=== PATIENT | male | born 1960 | race Caucasian/White ===

== ENCOUNTER 2020-06-24 08:34 | Outpatient (REF) | payer MEDICARE, SELFPAY | END 2020-06-24 08:35 | disposition home or self-care (01) | LOC: HO.WFDLDS 08:34 | PROVIDERS: Visit Provider Internal Medicine | DX: Z20.822 Contact with and (suspected) exposure to COVID-19 (principal) | CPT/HCPCS: 36415; C9803; U0003 ==

== ENCOUNTER 2021-03-13 10:44 | Outpatient (REF) | payer MEDICARE, SELFPAY ==
--- NOTE | ~2021-03-13 | XR_ITS ---
EXAMINATION: XR CHEST CLINICAL INFORMATION: Pulmonary nodule COMPARISON: CT on 07/04/2019 TECHNIQUE: 2 views of the chest were obtained. FINDINGS: No significant abnormality is noted involving the heart, lungs, mediastinum, bony thorax or soft tissues. XR/XR chest 2V IMPRESSION: Unremarkable examination. The nodule visualized on the prior chest CT is too small for visualization on chest x-ray.
[2021-03-13 12:49] LABS: Alanine Aminotransferase 37 U/L (0-40); Albumin Level 4.4 g/dL (3.5-5.0); Alkaline Phosphatase 79 U/L (39-117); Anion Gap 12 (12-20); Aspartate Amino Transferase 22 U/L (5-37); Bilirubin Total 0.7 mg/dL (0.0-1.0); Blood Urea Nitrogen 15 mg/dL (9-16); Calcium 9.7 mg/dL (8.4-10.2); Carbon Dioxide 28 mmol/L (22-29); Chloride 104 mmol/L (96-108); Cholesterol 242 mg/dL; Estimated Glomerular Filt Rate > 60; Glucose Random 102 mg/dL (60-115); HDL Cholesterol 61 mg/dL; LDL Cholesterol Calculated 165 mg/dl; Potassium 4.9 mmol/L (3.3-5.1); Sodium 139 mmol/L (135-145); Total Protein 7.1 g/dL (6.5-8.0); Triglycerides 84 mg/dL
[2021-03-13 13:11] LABS: TSH reflex Free T4 1.86 uIU/mL (0.32-4.0)
== END 2021-03-13 10:45 | disposition home or self-care (01) ==
LOC: HO.LAB 10:44
PROVIDERS: PCP Family Medicine; Visit Provider Family Medicine
DX: Z00.00 Encounter for general adult medical examination without abnormal findings (principal); R91.1 Solitary pulmonary nodule
CPT/HCPCS: 36415; 71046; 80053; 80061; 84443

== ENCOUNTER 2021-08-27 12:40 | Outpatient (REF) | payer MEDICARE, SELFPAY ==
[2021-08-27 14:22] LABS: MANUAL DIFF FLAG NO
[2021-08-27 14:34] LABS: Basophils Percent Auto 0.5 % (0-2); Eosinophils Absolute Auto 0.1 X10*3/uL (0.0-0.4); Eosinophils Percent Auto 1.3 % (0-4); Hematocrit 44.2 % (42.0-52.0); Hemoglobin 14.8 g/dl (14.0-18.0); Imm Gran Abs Auto 0.02 X10*3/uL (0.00-0.03); Imm Gran Pct Auto 0.4 % (0.0-0.4); Lymphocytes Absolute Auto 1.4 X10*3/uL (1.2-4.9); Lymphocytes Percent Auto 25.2 % (20-40); Mean Corpuscular HGB Conc 33.5 g/dl (31.0-36.0); Mean Corpuscular Hemoglobin 30.5 pg (27.0-33.0); Mean Corpuscular Volume 90.9 fL (80.0-98.0); Mean Platelet Volume 10.4 fL (9.4-12.4); Monocytes Absolute Auto 0.4 X10*3/uL (0.1-1.2); Neutrophils Absolute Auto 3.6 x10*3/uL (2.0-8.3); Neutrophils Percent Auto 64.6 % (45-73); Platelet Count 193 X10*3/uL (160-400); Red Blood Count 4.86 X10*6/uL (4.60-5.80); Red Cell Distribution Width 13.1 % (11.0-16.0); White Blood Count 5.5 X10*3/uL (4.8-10.8)
[2021-08-27 14:39] LABS: Appearance Urine CLEAR; Color Urine YELLOW; Glucose Urine UA NEG (NEG); Leukocyte Esterase Urine NEG (NEG); Nitrite Urine NEG (NEG); Urine Blood TRACE (NEG); Urine Ketones NEG (NEG); Urine Protein NEG (NEG-TRACE)
[2021-08-27 14:56] LABS: Alanine Aminotransferase 38 U/L (0-40); Albumin Level 4.2 g/dL (3.5-5.0); Alkaline Phosphatase 79 U/L (39-117); Anion Gap 14 (12-20); Aspartate Amino Transferase 24 U/L (5-37); Bilirubin Total 0.7 mg/dL (0.0-1.0); Blood Urea Nitrogen 13 mg/dL (9-16); Calcium 9.5 mg/dL (8.4-10.2); Carbon Dioxide 29 mmol/L (22-29); Chloride 102 mmol/L (96-108); Estimated Glomerular Filt Rate > 60; Glucose Random 90 mg/dL (60-115); Potassium 5.6 mmol/L (3.3-5.1); Sodium 139 mmol/L (135-145); Total Protein 6.9 g/dL (6.5-8.0)
[2021-08-27 15:08] LABS: Erythrocyte Sedimentation Rate 5 MM/HR (0-15)
[2021-08-27 15:16] LABS: Prostate Specific Antigen Scr 0.64 ng/mL (<0.05-4.0)
[2021-08-27 15:30] LABS: Squamous Epithelial Cell Urine TRACE /LPF; WBC Urine 0 /HPF (0-4)
[2021-08-28 12:52] LABS: Anti Nuclear Antibody Screen NEGATIVE (NEGATIVE)
[2021-08-28 18:21] LABS: CRP High Sensitivity 5.4 mg/L
== END 2021-08-27 12:41 | disposition home or self-care (01) ==
LOC: HO.WFDLDS 12:40
PROVIDERS: Visit Provider Family Medicine
DX: Z00.00 Encounter for general adult medical examination without abnormal findings (principal); Z12.5 Encounter for screening for malignant neoplasm of prostate; L29.9 Pruritus, unspecified; R21 Rash and other nonspecific skin eruption; I10 Essential (primary) hypertension
CPT/HCPCS: 36415; 80053; 81001; 81003; 84153; 85025; 85652; 86038; 86039; 86141

== ENCOUNTER 2021-11-24 12:37 | Outpatient (REF) | payer OTHER, SELFPAY ==
[2021-11-24 13:29] LABS: Anion Gap 11 (12-20); Blood Urea Nitrogen 13 mg/dL (9-16); Calcium 9.3 mg/dL (8.4-10.2); Carbon Dioxide 28 mmol/L (22-29); Chloride 102 mmol/L (96-108); Estimated Glomerular Filt Rate > 60; Glucose Random 86 mg/dL (60-115); Potassium 4.4 mmol/L (3.3-5.1); Sodium 137 mmol/L (135-145)
[2021-11-24 13:41] LABS: Appearance Urine CLEAR; Color Urine YELLOW; Glucose Urine UA NEG (NEG); Leukocyte Esterase Urine NEG (NEG); Nitrite Urine NEG (NEG); PH 5.5 (5.0-8.0); Urine Blood NEG (NEG); Urine Ketones NEG (NEG); Urine Protein NEG (NEG-TRACE)
== END 2021-11-24 12:38 | disposition home or self-care (01) ==
LOC: HO.LAB 12:37
PROVIDERS: PCP Family Medicine; Visit Provider Family Medicine
DX: Z00.00 Encounter for general adult medical examination without abnormal findings (principal); E87.5 Hyperkalemia
CPT/HCPCS: 36415; 80048; 81003

== ENCOUNTER 2021-12-10 09:51 | Outpatient (REF) | payer OTHER, SELFPAY ==
--- NOTE | ~2021-12-10 | XR_ITS ---
EXAMINATION: XR PELVIS CLINICAL INFORMATION: Hip pain. COMPARISON: 09/29/2017 TECHNIQUE: AP view of the pelvis. FINDINGS: There is no evidence of acute fracture or diastasis of the pelvis. There is collar spurring seen involving the acetabulum bilaterally. There is loss of concavity about the superior lateral femoral neck with bump having the appearance of impingement syndrome. There is subchondral cyst formation seen about the hip and superior acetabulum. Patient is status post previous pedicle screw and ananda fixation of L4 and S1 with disc spacers seen at the L4-L5 and L5-S1 levels. Suture line from previous surgery seen about the pelvis. XR/XR pelvis 1-2V IMPRESSION: Stable appearance of the pelvis compared to study of 09/29/2017 with findings consistent with impingement syndrome of the right hip.
== END 2021-12-10 09:52 | disposition home or self-care (01) ==
LOC: HO.HOSX 09:51
PROVIDERS: Visit Provider Orthopaedic Surgery
DX: M16.11 Unilateral primary osteoarthritis, right hip (principal); M76.60 Achilles tendinitis, unspecified leg
CPT/HCPCS: 72170; 99212

== ENCOUNTER 2022-01-15 12:46 | Outpatient (REF) | payer OTHER, SELFPAY ==
--- NOTE | ~2022-01-15 | XR_ITS ---
EXAMINATION: XR ABDOMEN KUB CLINICAL INDICATION: Pelvic and perineal pain. COMPARISON: None TECHNIQUE: AP view of the abdomen. FINDINGS: There is a nonobstructive bowel gas pattern. Mild gas and stool are seen within the colon distally to the rectum. Mild multilevel degenerative changes are seen in the thoracolumbar spine. Posterior fusion hardware is seen in the inferior lumbar spine without abnormality. XR/XR KUB IMPRESSION: Nonobstructive bowel gas pattern.
== END 2022-01-15 12:47 | disposition home or self-care (01) ==
LOC: HO.HMGCX 12:46
PROVIDERS: PCP Family Medicine; Visit Provider Nurse Practitioner Family
DX: R10.2 Pelvic and perineal pain (principal)
CPT/HCPCS: 74018

== ENCOUNTER 2022-02-24 11:21 | Outpatient (REF) | payer OTHER, SELFPAY ==
[2022-02-24 14:31] LABS: Anion Gap 14 (12-20); Blood Urea Nitrogen 15 mg/dL (9-16); Calcium 9.2 mg/dL (8.4-10.2); Carbon Dioxide 25 mmol/L (22-29); Chloride 101 mmol/L (96-108); Estimated Glomerular Filt Rate > 60; Glucose Random 95 mg/dL (60-115); Potassium 4.4 mmol/L (3.3-5.1); Sodium 136 mmol/L (135-145)
== END 2022-02-24 11:22 | disposition home or self-care (01) ==
LOC: HO.WFDLDS 11:21
PROVIDERS: Visit Provider Family Medicine
DX: Z00.00 Encounter for general adult medical examination without abnormal findings (principal); E87.5 Hyperkalemia
CPT/HCPCS: 36415; 80048

== ENCOUNTER 2022-09-20 11:46 | Outpatient (REF) | payer OTHER, SELFPAY ==
[2022-09-20 14:05] LABS: MANUAL DIFF FLAG NO
[2022-09-20 14:27] LABS: Basophils Absolute Auto 0.1 X10*3/uL (0.0-0.2); Basophils Percent Auto 0.8 % (0-2); Eosinophils Absolute Auto 0.1 X10*3/uL (0.0-0.4); Eosinophils Percent Auto 1.2 % (0-4); Hematocrit 45.3 % (42.0-52.0); Hemoglobin 15.5 g/dl (14.0-18.0); Imm Gran Abs Auto 0.02 X10*3/uL (0.00-0.03); Imm Gran Pct Auto 0.3 % (0.0-0.4); Lymphocytes Absolute Auto 1.4 X10*3/uL (1.2-4.9); Lymphocytes Percent Auto 18.6 % (20-40); Mean Corpuscular HGB Conc 34.2 g/dl (31.0-36.0); Mean Corpuscular Hemoglobin 30.7 pg (27.0-33.0); Mean Corpuscular Volume 89.7 fL (80.0-98.0); Mean Platelet Volume 10.6 fL (9.4-12.4); Monocytes Absolute Auto 0.5 X10*3/uL (0.1-1.2); Neutrophils Absolute Auto 5.3 x10*3/uL (2.0-8.3); Neutrophils Percent Auto 72.1 % (45-73); Platelet Count 201 X10*3/uL (160-400); Red Blood Count 5.05 X10*6/uL (4.60-5.80); Red Cell Distribution Width 13.6 % (11.0-16.0); White Blood Count 7.3 X10*3/uL (4.8-10.8)
[2022-09-20 14:35] LABS: Alanine Aminotransferase 33 U/L (0-40); Albumin Level 4.3 g/dL (3.5-5.0); Alkaline Phosphatase 78 U/L (39-117); Anion Gap 11 (12-20); Aspartate Amino Transferase 18 U/L (5-37); Bilirubin Total 0.6 mg/dL (0.0-1.0); Blood Urea Nitrogen 13 mg/dL (9-16); Calcium 9.1 mg/dL (8.4-10.2); Carbon Dioxide 28 mmol/L (22-29); Chloride 104 mmol/L (96-108); Estimated Glomerular Filt Rate > 60; Glucose Random 94 mg/dL (60-115); Potassium 4.4 mmol/L (3.3-5.1); Sodium 139 mmol/L (135-145); Total Protein 6.7 g/dL (6.5-8.0)
== END 2022-09-20 11:47 | disposition home or self-care (01) ==
LOC: HO.WFDLDS 11:46
PROVIDERS: Visit Provider Family Medicine
DX: Z00.00 Encounter for general adult medical examination without abnormal findings (principal); R10.9 Unspecified abdominal pain
CPT/HCPCS: 36415; 80053; 85025

== ENCOUNTER 2022-09-21 14:02 | Outpatient (REF) | payer OTHER, SELFPAY ==
[2022-09-21 14:30] LABS: Appearance Urine Clear; Color Urine Yellow; Glucose Urine UA Negative (Negative); Leukocyte Esterase Urine Negative (Negative); Nitrite Urine Negative (Negative); PH 5.5 (5.0-9.0); Specific Gravity - Urine 1.025 (1.005-1.025); Urine Blood Negative (Negative); Urine Ketones Negative (Negative); Urine Protein Negative (Neg-Trace)
[2022-09-22 12:59] LABS: Campylobacter Not Detected (Not Detect.); Cryptosporidium Not Detected (Not Detect.); Cyclospora cayetanensis Not Detected (Not Detect.); E. coli EAEC Not Detected (Not Detect.); E. coli EPEC Not Detected (Not Detect.); E. coli ETEC Not Detected (Not Detect.); E. coli STEC Not Detected (Not Detect.); Entamoeba histolytica Not Detected (Not Detect.); Plesiomonas shigelloides Not Detected (Not Detect.); Salmonella Not Detected (Not Detect.); Shigella sp./EIEC Not Detected (Not Detect.); Vibrio Not Detected (Not Detect.); Vibrio Cholerae Not Detected (Not Detect.); Yersinia enterocolitica Not Detected (Not Detect.)
[2022-09-22 13:00] LABS: Adenovirus F 40/41 Not Detected (Not Detect.); Astrovirus Not Detected (Not Detect.); Giardia lamblia Not Detected (Not Detect.); Norovirus GI/GII Not Detected (Not Detect.); Rotavirus A Not Detected (Not Detect.); Sapovirus Not Detected (Not Detect.)
== END 2022-09-21 14:03 | disposition home or self-care (01) ==
LOC: HO.LNP 14:02
PROVIDERS: Visit Provider Family Medicine
DX: R10.9 Unspecified abdominal pain (principal); R30.0 Dysuria
CPT/HCPCS: 81003; 87507

== ENCOUNTER → 2022-10-19 09:02 | Outpatient (BNVA) | payer OTHER, SELFPAY | PROVIDERS: PCP Physician Assistant; Visit Provider Physician Assistant | DX: K57.92 Diverticulitis of intestine, part unspecified, without perforation or abscess without bleeding (principal); R19.4 Change in bowel habit; Z78.9 Other specified health status | CPT/HCPCS: 99212 ==

== ENCOUNTER 2022-12-16 10:44 | Outpatient (REF) | payer OTHER, SELFPAY ==
--- NOTE | ~2022-12-16 | XR_ITS ---
EXAMINATION: XR HIP, RIGHT CLINICAL INFORMATION: Pain. COMPARISON: None available. TECHNIQUE: AP and frog-leg lateral views of the right hip are submitted, together with a frontal view of the pelvis. FINDINGS: There is mild bony demineralization. There is mild narrowing of the right acetabular joint space, and the left acetabular joint space is well-maintained. There is subchondral sclerosis of the right acetabular roof. The bilateral femoral heads appear smooth. No fracture or dislocation is seen. The sacroiliac joints are symmetric and well-maintained. The pubic symphysis is intact. There are pelvic phleboliths. Lumbosacral orthopedic hardware is noted. XR/XR hip RT w PEL1V IMPRESSION: There is mild osteoarthritic change of the right hip, and no significant degenerative change is seen of the left hip. No fracture or dislocation is noted.
--- NOTE | ~2022-12-16 | XR_ITS ---
EXAMINATION: XR ABDOMEN KUB CLINICAL INDICATION: Abdominal pain. COMPARISON: KUB dated 01/15/2022. TECHNIQUE: AP view of the abdomen. FINDINGS: The bowel gas pattern is normal with no evidence of ileus or obstruction. No unusual soft tissue calcifications are noted. The bones are unremarkable. Lower lumbar orthopedic hardware is noted. XR/XR KUB IMPRESSION: Unremarkable examination.
== END 2022-12-16 10:45 | disposition home or self-care (01) ==
LOC: HO.XRAY 10:44
PROVIDERS: PCP Family Medicine; Visit Provider Physical Medicine & Rehabilitation
DX: R10.9 Unspecified abdominal pain (principal); M25.551 Pain in right hip
CPT/HCPCS: 73502; 74018

== ENCOUNTER 2023-05-09 13:05 | Outpatient (AMB) | payer OTHER, SELFPAY ==
--- NOTE | 2023-05-09 13:08 | A.OFFPC_ITS ---
Vital Signs 05/09/23 13:13 Height 5 ft 10 in Weight 217 lb BMI 31.1 BP 130/80 Blood Pressure Location Lt brachial Position Sitting Respiration 14 Pulse 97 Pulse Source Pulse Oximeter Pulse Oximetry (%) 96 Oxygen Delivery Method Room Air Intake Visit Reasons: Fall bruised tail bone Intake Note: Patient fell backwards over the side of a garden bed and fell onto a 2x4 piece of wood, hitting his tailbone. Patient reports the pain has caused him to stay in bed all weekend and he is concerned for the area as he has had previous operations. Calibration Technician Required: No Accompanied by: Self / Same As Patient Allergies celecoxib [Celebrex] Adverse Reaction (Unknown, Verified 05/09/23 13:28) eyes swell Medication List - Last Reconciled 05/09/23 by Vern Pat CNP cetirizine 10 mg PO DAILY clotrimazole-betamethasone 1-0.05 % 1 appl topical BID 2 weeks cyclobenzaprine 10 mg PO TID PRN hydrochlorothiazide 12.5 mg PO DAILY 90 days ibuprofen 800 mg PO Q8H PRN methylcellulose (laxative) (Citrucel) 500 mg PO TID PRN mupirocin 2% 1 appl topical BID 30 days oxycodone ER (OxyContin) 0 mg PO polyethylene glycol 3350 (Miralax) 17 grams PO DAILY 14 days Tobacco use date assessed: 05/09/23 Dental Screening Dental Screen Date: 05/09/23 HPI HPI Comments History of Present Illness Details 62-year-old male presents with complaint s of pain to his tailbone. He notes that he fell backwards on the side of a garden bed and landed on her buttocks on a 2 x 4 piece of wood. He states the incident happened last Tuesday. He notes he was in significant amount of pain and stayed in bed throughout the weekend. No tingling, numbness, loss of sensation. He reports h/o L4-S1 work- related injury 16 years ago with spinal fusion. He is on Oxycodone for chronic pain management of the lower spine; provides minimal relief of his current symptoms. [facility] Family History Father No problems noted. Mother No problems noted. 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al exposures/hazards: No Cognitive needs: No Hearing needs: No Vision needs: Yes Questionnaire Thrive Questionnaire Date Thrive assessed: 11/24/21 PAYTON-7 AMB Questionnaire PAYTON-7 Date PAYTON - 7 assessed: 11/24/21 Source: Developed by Drs. Alexi Moreno, Amarilys White, Jesus Marcial and colleagues, with an educational padmini from [employer]. Review of Systems Const Details: Const Denies chills, Denies fatigue, Denies fever(s), Denies headache(s) and Denies weakness ENT Denies dizziness and Denies headache(s) Card Denies chest pain, Denies lightheadedness, Denies dyspnea and Denies other (Palpitations) Resp Denies cough, Denies dyspnea, Denies wheezing and Denies other ( shortness of breath) GI Denies abdominal pain, Denies melena, Denies hematochezia, Denies change in bowel habits, Denies dyspepsia and Denies nausea Denies hematuria and Denies dysuria Musc Reports as per HPI Skin/Breast Denies rash, Denies unusual bruising and Denies wounds Neuro Denies abnormal gait, Denies dizziness, Denies headache(s), Denies memory loss, Denies numbness, Denies Sensory deficit (Neuro), Denies tingling and Denies weakness Psych Denies anxiety, Denies depression, Denies memory loss Endo Denies cold intolerance, Denies fatigue, Denies heat intolerance, Denies polydipsia and Denies polyuria Aller/Immun Denies wheezing Physical exam (Primary Care) Vital Signs: Last Vital Signs Pulse 97 05/09/23 13:13 Resp 14 05/09/23 13:13 BP 130/80 05/09/23 13:13 Pulse Ox 96 05/09/23 13:13 Oxygen Delivery Method Room Air 05/09/23 13:13 BMI result Body Mass Index 31.1 Tobacco/Smoking Status: Tobacco use Status Tobacco use date assessed 05/09/23 05/09/23 13:21 Patient Tobacco Use Status Never used Tobacco 05/09/23 13:10 e-Cigarette/Vaping Use Never Used 05/09/23 13:10 Thrive Assessment: Date of Thrive Assessment Date Thrive assessed 11/24/21 05/09/23 13:10 Const Other: General: no acute distress and well developed Nutritional Appearance: well nourished Orientation/consciousness: patient oriented x3 HENMT Head: Yes normocephalic and Yes atraumatic Eyes General: appearance normal, both eyes and all related structures Pupils: Equal, round and reactive pupils present EOM: EOMs intact bilaterally Resp Effort & Inspection: normal respiratory effort Auscultation: clear to auscultation bilaterally Cardio Rate: regular rate Rhythm: regular rhythm Heart sounds: S1 normal heart sound present, S2 normal heart sound present, no gallops, no murmurs and no rubs GI Palpation (GI): No Abdominal aortic bruit present, Soft to palpation, nontender, No hepatosplenomegaly present and No Rebound tenderness present Auscultation: normal bowel sounds General: Yes no CVA tenderness Back/Spine/Pelvis Back: no CVA tenderness Cervical Spine: cervical ROM normal and No Cervical spine tenderness Thoracic/Lumbar Spine: thoraco-lumbar ROM normal, No pain with thoraco-lumbar ROM, No thoracic spinal tenderness and No lumbar spinal tenderness Significant bruising and mild edema noted to the buttocks proximal to the co ccyx, skin is intact, no overt fracture noted Extrem General: Yes normal to inspection, No edema and No calf tenderness Skin General: warm and dry. Normal skin color. Normal skin turgor Neuro General: patient oriented x3, gait normal and no focal neuro deficit Cranial nerves: Yes Equal, round and reactive pupils present Cognition (Neuro): normal cognition Gait exam (Neuro): Normal gait present Sensory Exam: No Sensory deficit (Neuro) Psych Appearance: grossly normal Affect: normal affect Attitude: cooperative Thought process: Normal thought process present Assessment and Plan Assessment & Plan (1) Coccyx pain: Code(s): M53.3 - Sacrococcygeal disorders, not elsewhere classified Plan: Reports constant pain to his coccyx from a fall 4 days ago. No tingling, numbness, or loss of sensation History of injury to L1-S1 with spinal fusion Physical exam is benign No neuro deficit. Low suspicion for cauda equina syndrome Significant bruising and mild edema noted to the buttocks proximal to the coccyx, skin is intact, no overt fracture noted Ibuprofen refilled. Take as prescribed Cold compresses encouraged X-ray ordered Return with worsening or new symptoms Verbalized understanding and agreed with treatment plan. Orders: Orders XR sacrum coccyx min 2V Today M53.3 - Sacrococcygeal disorders, not elsewhere classified Medications: Refilled ibuprofen 800 mg PO Q8H PRN 90 tabs 0RF for pain Coding Level of Care Code Est Pt Level 3 (31478) Diagnoses Coccyx pain M53.3
[2023-05-09 13:13] VITALS: BP 130/80; PULSE 97; RESP 14; O2SAT 96; BMI 31.1
== END 2023-05-09 13:45 | disposition home or self-care (01) ==
PROVIDERS: PCP Family Medicine; Visit Provider Nurse Practitioner Family
DX: M53.3 Sacrococcygeal disorders, not elsewhere classified (principal)
CPT/HCPCS: 99213

== ENCOUNTER 2023-05-09 14:05 | Outpatient (REF) | payer OTHER, SELFPAY ==
--- NOTE | ~2023-05-09 | XR_ITS ---
EXAMINATION: XR SACRUM AND COCCYX CLINICAL INFORMATION: Sacral coccygeal disorder. Pain COMPARISON: None available. TECHNIQUE: 2 views of the sacrum and 2 views of the coccyx were obtained. FINDINGS: The SI joints are symmetrical and unremarkable. There is no fracture, sclerotic or lytic lesion involving the sacrum or the iliac bone. There are bilateral L4 and S1 pedicular screws with interconnecting rods and disc prostheses at the L4-L5 and L5-S1 disc level. The soft tissues are normal. XR/XR sacrum coccyx min 2V IMPRESSION: 1. Unremarkable SI joints. 2. Bilateral L4 and S1 pedicular screws with interconnecting rods and disc prostheses at the L4-L5 and L5-S1 disc levels.
== END 2023-05-09 14:06 | disposition home or self-care (01) ==
LOC: HO.HMGCX 14:05
PROVIDERS: PCP Family Medicine; Visit Provider Nurse Practitioner Family
DX: M53.3 Sacrococcygeal disorders, not elsewhere classified (principal)
CPT/HCPCS: 72220

== ENCOUNTER 2023-07-15 14:01 | Outpatient (AMB) | payer OTHER, SELFPAY ==
--- NOTE | 2023-07-15 14:10 | A.OFFPC_ITS ---
Vital Signs 07/15/23 14:11 Height 5 ft 10 in Weight 220 lb 6 oz BMI 31.6 BP 132/76 Blood Pressure Location Lt brachial Position Sitting Pulse 77 Pulse Source Pulse Oximeter Pulse Oximetry (%) 97 Oxygen Delivery Method Room Air Intake Visit Reasons: CPE Intake Note: Patient is here for his phyical today. Patient would like refill of his Ibuprofen today. Allergies celecoxib [Celebrex] Adverse Reaction (Unknown, Verified 07/15/23 14:12) eyes swell Tobacco use date assessed: 07/15/23 [facility] Family History (Reviewed 07/15/23 @ 14:13 by Lorri Holley [facility]) Father No problems noted. Mother No problems noted. Social History (Reviewed 07/15/23 @ 14:13 by Lorri Holley [facility]) Housing: House Alcohol intake: current Alcohol intake frequency: a few times a month Patient Tobacco Use Status: Never used Tobacco e-Cigarette/Vaping Use: Never Used Second Hand Smoke Exposure: No service: No Current occupational status: disabled Current occupational exposures/hazards: No Cognitive needs: No Hearing needs: No Vision needs: Yes Questionnaire PHQ-9 Over the last 2 weeks, how often have you been bothered by any of the following problems? 1. Little interest or pleasure in doing things: not at all 2. Feeling down, depressed, or hopeless: not at all 3. Trouble falling or staying asleep, or sleeping too much: not at all 4. Feeling tired or having little energy: not at all 5. Poor appetite or overeating: not at all 6. Feeling bad about yourself - or that you are a failure or have let yourself or your family down: not at all 7. Trouble concentrating on things, such as reading the newspaper or watching television: not at all 8. Moving or speaking so slowly that other people could have noticed. Or the opposite - being so fidgety or restless that you have been moving around a lot more than usual: not at all 9. Thoughts that you would be better off or of hurting yourself in some way: not at all Total score: 0 Depression Screening Interpretation: Negative Depression Screening Done: Yes Source: Developed by Drs. Alexi Moreno, Amarilys White, Jesus Marcial and colleagues, with an educational padmiin from [employer]. Thrive Questionnaire Date Thrive assessed: 11/24/21 I am a: Patient What is your living situation today?: I have a steady place to live Within the past 12 months, did the food you bought not last and you didn't have the money to get more?: Never true Within the past 12 months, did you worry whether your food would run out before you got money to buy more?: Never true Do you have trouble paying for medicines?: No Do you have trouble getting transportation to medical appointments?: No Do you have trouble paying your heating and electricity bill?: No Do you have trouble taking care of your child, family member or friend?: No Do you have trouble with day-to-day activities such as bathing, preparing meals, shopping, managing finances, etc.?: No Are you currently unemployed and looking for a job?: No Are you interested in more education?: No THRIVE Score: 0 AUDIT C Alcohol Use Questionnaire (AUDIT-C) 1. How often do you have a drink containing alcohol?: Never 3. How often do you have six or more drinks on one occasion?: Never Total Score: 0 PAYTON-7 AMB Questionnaire PAYTON-7 Date PAYTON - 7 assessed: 07/15/23 Feeling nervous, anxious, or on edge: 0 = Not at all Not being able to stop or control worryin = Not at all Worrying too much about different things: 0 = Not at all Trouble relaxin = Not at all Being so restless that it is hard to sit still: 0 = Not at all Becoming easily annoyed or irritable: 0 = Not at all Feeling afraid as if something awful might happen: 0 = Not at all Total PAYTON-7 score (0-4 normal; 5-9 mild; 10-14 moderate; 15-21 severe): 0 Source: Developed by Drs. Alexi Moreno, Amarilys White, Jesus Marcial and colleagues, with an educational padmini from [employer]. Review of Systems Const Details: Review of Systems Const Denies?chills,?Denies?fatigue,?Denies?fever(s),?Denies?headache(s) and?Denies?weakness Eyes Denies?change in vision ENT Denies?dizziness,?Denies?headache(s),?Denies?hearing loss,?Denies?nasal congestion,?Denies?sinus pain,?Denies?sinus pressure and?Denies?sore throat Card Denies?chest pain,?Denies?lightheadedness,?Denies?dyspnea and?Denies?other (palpitations) Resp Denies?cough,?Denies?dyspnea and?Denies?wheezing GI Denies?abdominal pain,?Denies?melena,?Denies?hematochezia,?Denies?change in bowel habits,?Denies?dyspepsia and?Denies?nausea Denies?hematuria and?Denies?dysuria Musc Denies?abnormal gait,?Denies?myalgias,?Denies?arthralgias,?Denies?numbness and?Denies?tingling Skin/Breast Denies?rash,?Denies?unusual bruising and?Denies?wounds Neuro Denies?abnormal gait,?Denies?dizziness,?Denies?headache(s),?Denies?memory loss,?Denies?numbness,?Denies?Sensory deficit (Neuro),?Denies?tingling and?Denies?weakness Psych Denies?anxiety,?Denies?depression and?Denies?memory loss Endo Denies?cold intolerance,?Denies?fatigue,?Denies?heat intolerance,?Denies?polydipsia and?Denies?polyuria Ceferino/Lymph Denies?easy bleeding and?Denies?easy bruising Aller/Immun Denies?wheezing All systems reviewed & are unremarkable except as noted in HPI and below Physical exam (Primary Care) Vital Signs: Last Vital Signs Pulse 77 07/15/23 14:11 BP 132/76 07/15/23 14:11 Pulse Ox 97 07/15/23 14:11 Oxygen Delivery Method Room Air 07/15/23 14:11 BMI result Body Mass Index 31.6 Tobacco/Smoking Status: Tobacco use Status Tobacco use date assessed 07/15/23 07/15/23 14:13 Patient Tobacco Use Status Never used Tobacco 07/15/23 14:13 e-Cigarette/Vaping Use Never Used 07/15/23 14:13 PHQ-9: PHQ-9 Score PHQ-9: Total score 0 07/15/23 14:17 Depression Screening Interpretation: Negative Thrive Assessment: Date of Thrive Assessment Date Thrive assessed 11/24/21 07/15/23 14:13 Const Other: Physical Exam Const General:?no acute distress, well developed, alert and awake Nutritional Appearance:?well nourished Orientation/consciousness:?patient oriented x3 [facility] Head:?Yes?normocephalic and?Yes?atraumatic Ears:?hearing grossly normal bilaterally and TM's normal bilaterally General nose exam:?Normal external nose present and Normal nares present Mouth:?Normal oral and palatal mucosa present and moist mucous membranes Teeth and gingiva:?dentition normal Throat:?Yes?posterior oropharynx normal Eyes Pupils:?Equal, round and reactive pupils present and Pupil accommodation reflex normal EOM:?EOMs intact bilaterally Neck Neck:?Yes?normal visual inspection,?Yes?no lymphadenopathy and?Yes?trachea midline Thyroid:?Thyroid normal Carotids:?no bruits Lymphatic:?no lymphadenopathy noted Chest Chest palpation & inspection:?normal inspection of the chest Resp Effort & Inspection:?normal respiratory effort Auscultation:?clear to auscultation bilaterally Cardio Rate:?regular rate Rhythm:?regular rhythm Heart sounds:?S1 normal heart sound present, S2 normal heart sound present, no gallops, no murmurs and no rubs Bruits:?no abdominal aortic bruits and no carotid bruits GI Palpation (GI):?No?Abdominal aortic bruit present, Soft to palpation, nontender, No hepatosplenomegaly present and?No?Rebound tenderness present Auscultation:?normal bowel sounds General:?Yes?no CVA tenderness Back/Spine/Pelvis Back:?no CVA tenderness Cervical Spine:?cervical ROM normal and?No?Cervical spine tenderness Thoracic/Lumbar Spine:?thoraco-lumbar ROM normal,?No?pain with thoraco-lumbar ROM,?No?thoracic spinal tenderness and?No?lumbar spinal tenderness Skin Lesions:?no lesions Rashes:?no rashes Trauma:?no lacerations or abrasions Wounds:?no wounds Nails:?normal Neuro General:?patient oriented x3, gait normal and CN's II-XI intact bilaterally Cranial nerves:?Yes?Equal, round and reactive pupils present Cognition (Neuro):?normal cognition Gait exam (Neuro):?Normal gait present Motor exam (neuro):?5/5 motor strength present throughout Sensory Exam:?No?Sensory deficit (Neuro) Deep tendon reflexes (DTR's):?Right patellar reflex intensity grade:?2+ and?Left patellar reflex intensity grade:?2+ Extrem General:?Yes?normal to inspection and?No?edema Psych Appearance:?grossly normal Affect:?normal affect Attitude:?cooperative Thought process:?Normal thought process present Assessment and Plan Assessment & Plan (1) Chest pain on respiration: Code(s): R07.1 - Chest pain on breathing Plan: Focal?pain?mildly?worsened?with?inspiration. Patient?also?has?had?a?history?of?pulmonary?nodule?which?has?not?been?fo llowed?up?on. Will?check?CT?scan (2) Pulmonary nodule: Code(s): R91.1 - Solitary pulmonary nodule Plan: As?above (3) Chronic diarrhea: Code(s): K52.9 - Noninfective gastroenteritis and colitis, unspecified Plan: Patient?is?frustrated?over?chronic?diarrhea?and?history?of?diverticulitis?and?so me?left?lower?quadrant?abdominal?pain. He?would?like?a?referral?to?see??Milena,?gastroenterology.??Referred (4) Screening for prostate cancer: Code(s): Z12.5 - Encounter for screening for malignant neoplasm of prostate Plan: Check?PSA (5) Screening for colon cancer: Code(s): Z12.11 - Encounter for screening for malignant neoplasm of colon Plan: Patient?is?up-to-date?with?colonoscopy. (6) Essential hypertension: Code(s): I10 - Essential (primary) hypertension Plan: Blood?pressure?is?controlled.??Goal?is?less?than?140/90 (7) Adult general medical exam: Code(s): Z00.00 - Encounter for general adult medical examination without abnormal findings Plan: Stable Orders: Orders Complete Blood Count Auto Diff Today Z00.00 - Encounter for general adult medical examination without abnormal findings Microalbumin, Random (w Creat) Today I10 - Essential (primary) hypertension Prostate Specific Antigen Scr Today Z12.5 - Encounter for screening for malignant neoplasm of prostate TSH reflex Free T4 Today Z00.00 - Encounter for general adult medical examinat ion without abnormal findings Comprehensive [employer]. Panel Fast Today Z00.00 - Encounter for general adult medical examination without abnormal findings Lipid Panel Today Z00.00 - Encounter for general adult medical examination without abnormal findings UA and rflx microscopic Today Z00.00 - Encounter for general adult medical examination without abnormal findings CT chest wo IV con Today R07.1 - Chest pain on breathing, R91.1 - Solitary pulmonary nodule Referrals Gastroenterology Referral K52.9 - Noninfective gastroenteritis and colitis, unspecified, K57.92 - Diverticulitis of intestine, part unspecified, without perforation or abscess without bleeding Medications: Refilled ibuprofen 800 mg PO Q8H PRN 90 tabs 0RF for pain Coding Level of Care Code Est Pt Level 4 (30992) Diagnoses Chest pain on respiration R07.1 Pulmonary nodule R91.1 Chronic diarrhea K52.9 Screening for prostate cancer Z12.5 Screening for colon cancer Z12.11 Essential hypertension I10 Adult general medical exam Z00.00
[2023-07-15 14:11] VITALS: BP 132/76; PULSE 77; O2SAT 97; BMI 31.6
== END 2023-07-15 15:02 | disposition home or self-care (01) ==
PROVIDERS: PCP Family Medicine; Visit Provider Family Medicine
DX: R07.1 Chest pain on breathing (principal); R91.1 Solitary pulmonary nodule; K52.9 Noninfective gastroenteritis and colitis, unspecified; Z12.5 Encounter for screening for malignant neoplasm of prostate; Z12.11 Encounter for screening for malignant neoplasm of colon; I10 Essential (primary) hypertension; Z00.00 Encounter for general adult medical examination without abnormal findings
CPT/HCPCS: 99214

== ENCOUNTER 2023-07-20 09:49 | Outpatient (REF) | payer OTHER, SELFPAY ==
[2023-07-20 11:29] LABS: MANUAL DIFF FLAG NO
[2023-07-20 11:33] LABS: Appearance Urine Clear; Color Urine Yellow; Glucose Urine UA Negative (Negative); Leukocyte Esterase Urine Negative (Negative); Nitrite Urine Negative (Negative); Specific Gravity - Urine 1.025 (1.005-1.025); UMIC TRIGGER UA YES; Urine Blood Trace (Negative); Urine Ketones Negative (Negative); Urine Protein Negative (Neg-Trace)
[2023-07-20 11:40] LABS: Basophils Percent Auto 0.7 % (0-2); Eosinophils Absolute Auto 0.2 X10*3/uL (0.0-0.4); Eosinophils Percent Auto 2.9 % (0-4); Hematocrit 45.8 % (42.0-52.0); Hemoglobin 15.4 g/dl (14.0-18.0); Imm Gran Abs Auto 0.02 X10*3/uL (0.00-0.03); Imm Gran Pct Auto 0.3 % (0.0-0.4); Lymphocytes Absolute Auto 1.3 X10*3/uL (1.2-4.9); Lymphocytes Percent Auto 22.8 % (20-40); Mean Corpuscular HGB Conc 33.6 g/dl (31.0-36.0); Mean Corpuscular Hemoglobin 30.3 pg (27.0-33.0); Mean Platelet Volume 10.7 fL (9.4-12.4); Monocytes Absolute Auto 0.5 X10*3/uL (0.1-1.2); Neutrophils Absolute Auto 3.7 x10*3/uL (2.0-8.3); Neutrophils Percent Auto 64.3 % (45-73); Platelet Count 188 X10*3/uL (160-400); Red Blood Count 5.09 X10*6/uL (4.60-5.80); Red Cell Distribution Width 13.2 % (11.0-16.0); White Blood Count 5.8 X10*3/uL (4.8-10.8)
[2023-07-20 11:55] LABS: Bacteria Urine None Seen (None Seen); Hyaline Casts Urine 0-2 /LPF (0-2); Squamous Epithelial Cell Urine 0-2 /HPF (0-2); WBC Urine 0-5 /HPF (0-5)
[2023-07-20 12:20] LABS: Alanine Aminotransferase 34 U/L (0-40); Alkaline Phosphatase 75 U/L (39-117); Anion Gap 12 (12-20); Aspartate Amino Transferase 22 U/L (5-37); Bilirubin Total 0.6 mg/dL (0.0-1.0); Blood Urea Nitrogen 16 mg/dL (9-16); Carbon Dioxide 27 mmol/L (22-29); Chloride 107 mmol/L (96-108); Cholesterol 217 mg/dL (<200); Estimated Glomerular Filt Rate > 60; Glucose Fasting 91 mg/dL (60-99); HDL Cholesterol 53 mg/dL (>40); LDL Cholesterol Calculated 148 mg/dL (<100); Potassium 4.3 mmol/L (3.3-5.1); Sodium 142 mmol/L (135-145); Total Protein 6.7 g/dL (6.5-8.0); Triglycerides 83 mg/dL (<150)
[2023-07-20 12:33] LABS: Prostate Specific Antigen Scr 0.45 ng/mL (<0.05-4.0)
[2023-07-20 12:38] LABS: Creatinine Urine 179.82 mg/dL; Microalbum/Creatinine Ratio Ur 3.3 ug/mg cr (<30)
[2023-07-20 12:44] LABS: TSH reflex Free T4 2.55 uIU/mL (0.32-4.0)
== END 2023-07-20 09:50 | disposition home or self-care (01) ==
LOC: HO.HMGCLDS 09:49
PROVIDERS: PCP Family Medicine; Visit Provider Family Medicine
DX: Z00.00 Encounter for general adult medical examination without abnormal findings (principal); I10 Essential (primary) hypertension; Z12.5 Encounter for screening for malignant neoplasm of prostate
CPT/HCPCS: 36415; 80053; 80061; 81001; 82043; 82570; 84153; 84443; 85025

== ENCOUNTER 2023-08-12 15:03 | Outpatient (REF) | payer OTHER, SELFPAY ==
--- NOTE | ~2023-08-12 | CT_ITS ---
EXAMINATION: CT CHEST WITHOUT CONTRAST CLINICAL INFORMATION: Solitary pulmonary nodule. COMPARISON: Chest x-ray 03/13/2021. CT chest 01/28/2017. TECHNIQUE: Multidetector volumetric CT imaging of the chest was done. Axial MIP volume rendering provided. Sagittal and coronal reformatted images were obtained. This CT examination was performed using dose optimization techniques as appropriate, variously including the following: *Automated exposure control *Adjustment of mA and/or kV according to patient size (this includes techniques or standardized protocols for targeted exams where dose is matched to indication/reason for exam; i.e. 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 LUNGS: Again visualized is a very small bulla with small posterior nodule measuring 7 x 3 mm wide. Previously it measured same size. It is best visualized on axial image 306/7. Inferiorly in the left lower lobe posterior basal segment is a thin-walled bulla measuring 2 cm wide, stable. There is is 6 x 4 mm endobronchial density right lower lobe axial image 371/7, stable. No additional nodule or mass or consolidation seen. MEDIASTINUM: The thyroid lobes are symmetric and normal. The central trachea and the bronchi are widely patent. Heart size and the great vessels are normal caliber. No pericardial effusion seen. No abnormal-sized mediastinal lymph node seen. CORONARY ARTERY CALCIFICATION: Trace coronary artery calcifications are present. PLEURA: There is no pleural effusion. No pleural mass or thickening. AXILLA: No lymphadenopathy. UPPER ABDOMEN: Visualized liver, spleen, pancreas, bladder and contracted gallbladder unremarkable. OSSEOUS STRUCTURES: No aggressive lytic or sclerotic process seen. There is mild ventral spondylosis lower dorsal spine. CT/CT chest wo IV con IMPRESSION: 1. Stable thin-walled bulla left lower lobe. Stable cyst with posterior wall nodularity. 2. Stable endobronchial density right lower lobe. 3. No new nodule or mass seen. Fleischner guidelines were followed.
== END 2023-08-12 15:04 | disposition home or self-care (01) ==
LOC: HO.CT 15:03
PROVIDERS: PCP Family Medicine; Visit Provider Family Medicine
DX: R91.1 Solitary pulmonary nodule (principal); R07.1 Chest pain on breathing
CPT/HCPCS: 71250

== ENCOUNTER 2023-08-30 15:54 | Outpatient (AMB) | payer OTHER, SELFPAY ==
--- NOTE | 2023-08-30 15:50 | A.OFFPC_ITS ---
Intake Visit Reasons: follow up labs Allergies celecoxib [Celebrex] Adverse Reaction (Unknown, Verified 08/30/23 15:51) eyes swell Tobacco use date assessed: 08/30/23 Dental Screening Dental Screen Date: 08/30/23 Did you have a dental visit in the last 12 months?: No Did you have a dental problem in the last 6 months where you did not have access to dental care?: No Was dental information given to patient?: No HPI follow up labs HPI Details 63 y/o male presents to f/u labs via tel emedicine. Hx of pulmonary nodules. Chest ct 08/12/23 showed no new nodules. Labs were drawn 07/20/23. Reviewed labs with pt. Triglycerides 83. TC 217. LDL 148. HDL 53. PFSH Family History Father No problems noted. Mother No problems noted. 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al exposures/hazards: No Cognitive needs: No Hearing needs: No Vision needs: Yes Questionnaire Thrive Questionnaire Date Thrive assessed: 11/24/21 PAYTON-7 AMB Questionnaire PAYTON-7 Date PAYTON - 7 assessed: 07/15/23 Source: Developed by Drs. Alexi Moreno, Amarilys White, Jesus Marcial and colleagues, with an educational padmini from [employer]. Review of Systems Const Denies chills, Denies fatigue, Denies fever(s), Denies headache(s) and Denies weakness ENT Denies dizziness and Denies headache(s) Card Denies dyspnea Resp Denies cough, Denies dyspnea, Denies wheezing and Denies other (shortness of breath) Musc Denies numbness and Denies tingling Neuro Denies dizziness, Denies headache(s), Denies numbness, Denies tingling and Denies weakness Psych Denies anxiety and Denies depression Endo Denies fatigue Aller/Immun Denies wheezing Physical exam (Primary Care) Tobacco/Smoking Status: Tobacco use Status Tobacco use date assessed 08/30/23 08/30/23 15:52 Patient Tobacco Use Status Never used Tobacco 08/30/23 15:52 e-Cigarette/Vaping Use Never Used 08/30/23 15:52 Thrive Assessment: Date of Thrive Assessment Date Thrive assessed 11/24/21 08/30/23 15:52 Telehealth Telehealth Location of provider rendering services: practice address Location of patient: address on file Patient Identification confirmed using: Name, : Yes Telehealth method: voice only Patient verbally consented to treatment: Yes Patient verbally consented to billing insurance company: Yes Patient informed of any privacy concerns related to visit: Yes Minutes spent on Phone/Video with Pt.: 8 Assessment and Plan Assessment & Plan (1) Hypercholesterolemia: Code(s): E78.00 - Pure hypercholesterolemia, unspecified Plan: LDL?cholesterol?is?high Encouraged?a?diet?lower?in?saturated?fats?and?cholesterol Will?recheck?in?3-4?months (2) Chronic diarrhea: Code(s): K52.9 - Noninfective gastroenteritis and colitis, unspecified Plan: Had?referred?patient?to?Gastroenterology?but?he?has?not?heard?from?them yet. Will?ask?office?to?check?on?status?of?referral (3) Pulmonary nodule: Code(s): R91.1 - Solitary pulmonary nodule Plan: History?of?pulmonary?nodules. Patient?had?had?a?a?chest?x-ray?in?2020?and?CT?scan?of?the?chest?in?2017. Recent?CT?scan?shows?no?changes?from?prior?above?studies. Stable (4) Ganglion cyst: Code(s): M67.40 - Ganglion, unspecified site Plan: Ganglion?cyst vs bone?cyst?or?hematoma?at?right?hand Referred?to?Hand?surgery (5) Right hand weakness: Code(s): R29.898 - Other symptoms and signs involving the musculoskeletal system Plan: Complaints?of?right?hand?weakness. As?above,?patient?already?referred?to?Ortho/hand?surgery Orders: Orders Comprehensive [place]. Panel Fast Today E78.00 - Pure hypercholesterolemia, unspecified, Z00.00 - Encounter for general adult medical examination without abnormal findings Lipid Panel Today E78.00 - Pure hypercholesterolemia, unspecified, Z00.00 - Encounter for general adult medical examination without abnormal findings UA and rflx microscopic Today I10 - Essential (primary) hypertension, Z00.00 - Encounter for general adult medical examination without abnormal findings Referrals Hand Surgery Referral M67.40 - Ganglion, unspecified site, R29.898 - Other symptoms and signs involving the musculoskeletal system Coding Level of Care Code Tele Est Pt Level 2 (63238) Diagnoses Hypercholesterolemia E78.00 Chronic diarrhea K52.9 Pulmonary nodule R91.1 Ganglion cyst M67.40 Right hand weakness R29.898
== END 2023-08-30 17:54 | disposition home or self-care (01) ==
LOC: HO.HMGFM 15:54
PROVIDERS: PCP Family Medicine; Visit Provider Family Medicine
DX: E78.00 Pure hypercholesterolemia, unspecified (principal); K52.9 Noninfective gastroenteritis and colitis, unspecified; R91.1 Solitary pulmonary nodule; M67.40 Ganglion, unspecified site; R29.898 Other symptoms and signs involving the musculoskeletal system
CPT/HCPCS: 99441

== ENCOUNTER 2023-09-21 14:27 | Outpatient (REF) | payer OTHER, SELFPAY ==
[2023-09-21 15:20] LABS: MANUAL DIFF FLAG NO
[2023-09-21 15:47] LABS: Basophils Percent Auto 0.6 % (0-2); Eosinophils Absolute Auto 0.1 X10*3/uL (0.0-0.4); Eosinophils Percent Auto 2.1 % (0-4); Hematocrit 44.7 % (42.0-52.0); Hemoglobin 15.3 g/dl (14.0-18.0); Imm Gran Abs Auto 0.04 X10*3/uL (0.00-0.03); Imm Gran Pct Auto 0.6 % (0.0-0.4); Lymphocytes Absolute Auto 1.6 X10*3/uL (1.2-4.9); Lymphocytes Percent Auto 23.8 % (20-40); Mean Corpuscular HGB Conc 34.2 g/dl (31.0-36.0); Mean Corpuscular Hemoglobin 30.5 pg (27.0-33.0); Mean Corpuscular Volume 89.2 fL (80.0-98.0); Mean Platelet Volume 10.1 fL (9.4-12.4); Monocytes Absolute Auto 0.6 X10*3/uL (0.1-1.2); Monocytes Percent Auto 9.3 % (2-11); Neutrophils Absolute Auto 4.3 x10*3/uL (2.0-8.3); Neutrophils Percent Auto 63.6 % (45-73); Platelet Count 192 X10*3/uL (160-400); Red Blood Count 5.01 X10*6/uL (4.60-5.80); Red Cell Distribution Width 13.3 % (11.0-16.0); White Blood Count 6.8 X10*3/uL (4.8-10.8)
[2023-09-21 16:07] LABS: Alanine Aminotransferase 40 U/L (0-40); Albumin Level 4.2 g/dL (3.5-5.0); Alkaline Phosphatase 83 U/L (39-117); Anion Gap 13 (12-20); Aspartate Amino Transferase 24 U/L (5-37); Bilirubin Total 0.4 mg/dL (0.0-1.0); Blood Urea Nitrogen 13 mg/dL (9-16); Calcium 9.2 mg/dL (8.4-10.2); Carbon Dioxide 29 mmol/L (22-29); Chloride 104 mmol/L (96-108); Cholesterol 215 mg/dL (<200); Estimated Glomerular Filt Rate > 60; Glucose Fasting 79 mg/dL (60-99); Glucose Random 79 mg/dL (60-115); HDL Cholesterol 53 mg/dL (>40); LDL Cholesterol Calculated 140 mg/dL (<100); Sodium 142 mmol/L (135-145); Total Protein 7.1 g/dL (6.5-8.0); Triglycerides 114 mg/dL (<150)
[2023-09-21 17:46] LABS: Appearance Urine Clear; Color Urine Yellow; Glucose Urine UA Negative (Negative); Leukocyte Esterase Urine Negative (Negative); Nitrite Urine Negative (Negative); PH 5.5 (5.0-9.0); Urine Blood Negative (Negative); Urine Ketones Negative (Negative); Urine Protein Negative (Neg-Trace)
== END 2023-09-21 14:28 | disposition home or self-care (01) ==
LOC: HO.LAB 14:27
PROVIDERS: PCP Family Medicine; Visit Provider Physician Assistant
DX: Z00.00 Encounter for general adult medical examination without abnormal findings (principal); E78.00 Pure hypercholesterolemia, unspecified; R10.9 Unspecified abdominal pain; R19.4 Change in bowel habit; G89.29 Other chronic pain; I10 Essential (primary) hypertension; Z87.19 Personal history of other diseases of the digestive system; Z79.899 Other long term (current) drug therapy
CPT/HCPCS: 36415; 80053; 80061; 81003; 85025; 99212

== ENCOUNTER 2023-09-21 14:27 | Outpatient (AMB) | payer OTHER, SELFPAY ==
--- NOTE | 2023-09-21 14:34 | MHC.OFFVIS ---
Intake Vital Signs 09/21/23 14:36 Height 5 ft 10 in Weight 223 lb BMI 32.0 BP 99/73 Blood Pressure Location Lt brachial Position Sitting Pulse 75 Intake Visit Reasons: Abdominal pain Intake Note: Patient follow up for abdominal pain. Patient cc: abdominal pain with diarrhea, denies any other GI issues. 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 Uppers Required: No Accompanied by: Self / Same As Patient Allergies celecoxib [Celebrex] Adverse Reaction (Unknown, Verified 09/21/23 14:34) eyes swell Medication List - Last Reconciled 09/21/23 by Toshia Nicole PA-C cetirizine 10 mg PO DAILY clotrimazole-betamethasone 1-0.05 % 1 appl topical BID 2 weeks cyclobenzaprine 10 mg PO TID PRN hydrochlorothiazide 12.5 mg PO DAILY 90 days ibuprofen 800 mg PO Q8H PRN methylcellulose (laxative) (Citrucel) 500 mg PO TID PRN mupirocin 2% 1 appl topical BID 30 days oxycodone ER (OxyContin) 0 mg PO polyethylene glycol 3350 (Miralax) 17 grams PO DAILY 14 days HPI HPI Comments History of Present Illness Details A 63 y/o male seen nearly 1 year ago- missed a f/u do to of mother-he presents today with an alternating stool pattern and chronic left quadrant pain-history of diverticulitis however he states this is not consistent with symptoms he had at that time. He is disabled due to chronic back pain-unsure if this is associated- Had a colonoscopy-12/2019- Romano- no polyps-repeat 5-7 Hx colectomy 2016- Mazzucco sigmoid diverticilits bowels inconsistent- seem to alternate- has some irritation in the perineum- saw derm- given ketoconazole-that has given him some relief He was taking metamucil- but stopped - His bowels seem to be inconsistent sometimes to soft other times not He does take oxycodone for chronic back pain He has good appetite He has no nausea, vomiting hematemesis, hematochezia fever or chills PFSH Family History Father No problems noted. Mother No problems noted. 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al exposures/hazards: No Cognitive needs: No Hearing needs: No Vision needs: Yes Review of Systems Const All systems reviewed & are unremarkable except as noted in HPI and below Denies chills and Denies fever(s) Card Denies chest pain and Denies dyspnea Resp Denies dyspnea GI Reports abdominal pain (llq-), Reports bloating, Denies hematochezia, Denies heartburn, Denies nausea, Denies vomiting and Denies hematemesis Physical Exam Vital Signs: Last Vital Signs Pulse 75 09/21/23 14:36 BP 99/73 09/21/23 14:36 BMI result Body Mass Index 32.0 Const General: cooperative, healthy appearing, comfortable and no acute distress Orientation/consciousness: patient oriented x3 Limitations: no limitations Eyes Sclerae: sclerae normal Resp Effort & Inspection: normal respiratory effort and able to speak in complete sentences Auscultation: clear to auscultation bilaterally, no rales, no rhonchi and no wheezes GI Other: Nontender to deep palpation Bowel sounds all 4 quadrant Palpation (GI): Soft to palpation, nontender and no guarding Auscultation: normal bowel sounds Skin General skin exam: no rashes or lesions noted Neuro General: patient oriented x3 Extrem General: Yes full ROM Psych Mental Status: mental status grossly normal Speech and movement: Clear speech present Affect: normal affect Attitude: cooperative Thought process: Normal thought process present Thought content: Normal thought content present Insight: Good insight present (Psych) Judgement: Good judgement present (Psych) Assessment & Plan Assessment & Plan (1) History of diverticulitis: Comment: Reviewed symptoms if patient-not consistent with previous diverticulitis Code(s): Z87.19 - Personal history of other diseases of the digestive system Plan: Reviewed and diverticulosis/diverticulitis ER protocol Maintain high-fiber diet avoid constipation (2) Chronic abdominal pain: Comment: Left quadrant-left left flank-long history chronic back-? Diverticular dz-will get CBC-encouraged ED if pain persists Code(s): R10.9 - Unspecified abdominal pain; G89.29 - Other chronic pain Plan: ED if pain persists (3) Change in stool habits: Comment: Alternating stool-had been consistent when taking Metamucil Code(s): R19.4 - Change in bowel habit Plan: Metamucil Plan CBC CMP If pain persists go to ED due to history of diverticulitis- CT abdomen pelvis IV oral contrast Orders: Orders CT abdomen pelvis w IV con Today G89.29 - Other chronic pain, R10.9 - Unspecified abdominal pain, Z87.19 - Personal history of other diseases of the digestive system Complete Blood Count Auto Diff Today G89.29 - Other chronic pain, R10.9 - Unspecified abdominal pain, Z87.19 - Personal history of other diseases of the digestive system Comprehensive Met. Panel Today G89.29 - Other chronic pain, R10.9 - Unspecified abdominal pain, Z87.19 - Personal history of other diseases of the digestive system Medications: New barium sulfate 2%(w/v) (Readi-Cat 2) 450 mL PO DIRECTED 900 mL 0RF 1 day Patient Instructions: CBC CMP If pain persists go to ED due to history of diverticulitis CT abdomen pelvis IV oral contrast Metamucil help bulk up stool Follow-up with Dermatology Will follow-up for progress-repeat colonoscopy if appropriate Encouraged to call questions or concerns Appreciate the opportunity assist in the care pleasant Gent No major barriers to understanding were identified Coding Level of Care Code Est Pt Level 3 (03187) Diagnoses History of diverticulitis Z87.19 Chronic abdominal pain R10.9; G89.29 Change in stool habits R19.4 Time Spent (min) 25
[2023-09-21 14:36] VITALS: BP 99/73; PULSE 75; BMI 32.0
== END 2023-09-21 15:02 | disposition home or self-care (01) ==
PROVIDERS: PCP Family Medicine; Visit Provider Physician Assistant
DX: Z87.19 Personal history of other diseases of the digestive system (principal); R10.9 Unspecified abdominal pain; G89.29 Other chronic pain; R19.4 Change in bowel habit
CPT/HCPCS: 99213

== ENCOUNTER 2023-10-05 10:27 | Outpatient (AMB) | payer OTHER, SELFPAY ==
[2023-10-05 10:42] VITALS: BMI 32.0
--- NOTE | 2023-10-05 10:42 | MHC.OFFVIS ---
Intake Vital Signs 10/05/23 10:42 Height 5 ft 10 in Weight 223 lb BMI 32.0 Intake Visit Reasons: NProblem-Ganglion cyst of right hand Intake Note: Carl 63 yr old right hand dominant male presents today for a new problem visit for his Ganglion cyst of right hand. States he noticed this about 1 month ago and has grown in size. Cyst is on his dorsum aspect of hand. Reports no pain. No recent injury. He also has numbness in his ring and middle finger for the last month since he noticed his cyst. Allergies celecoxib [Celebrex] Adverse Reaction (Unknown, Verified 10/05/23 10:50) eyes swell HPI NProblem-Ganglion cyst of right hand HPI Details Carl is a 63 year old right hand dominant man who presents with complaints of a right dorsal hand mass which has been present for ~1 month. He denies any known injury, but says he did fall while snowblowing several weeks ago. He denies any pain. He also complains of numbness in his middle & ring fingers for ~1 month now. He says this began when he first noticed the mass on his hand. He is planing to travel to [place] for a few weeks soon as his son just graduated from [employer] He says he is out of work on disability due to a hx of previous spine fusions. [facility] Family History Father No problems noted. Mother No problems noted. 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 Current occupational exposures/hazards: No Cognitive needs: No Hearing needs: No Vision needs: Yes Review of Systems Const All systems reviewed & are unremarkable except as noted in HPI and below Physical Exam Vital Signs: BMI result Body Mass Index 32.0 Const General: cooperative, healthy appearing and no acute distress Orientation/consciousness: patient oriented x3 HEENT Head: Yes normocephalic and Yes atraumatic Eyes EOM: EOMs intact bilaterally Resp Effort & Inspection: normal respiratory effort and able to speak in complete sentences Cardio Jugular venous distension: no JVD Skin General skin exam: turgor normal Rashes: no rashes Neuro General: patient oriented x3 Extrem Other: Evaluation of Right Upper Extremity: The patient is alert, oriented, and in no acute distress Neuro: Median, Ulnar, Radial nerves motor and sensory intact and sensation is normal to the tips of all digits No thenar or intrinsic wasting Good APB muscle belly firing and good finger cross Vascular: Cap refill brisk ROM: He can make a fist and extend all his digits No locking or catching Skin: No lacerations or abrasions. General: No Ecchymosis. No Erythema or evidence of infection. There is a mass on the dorsal aspect of his hand, in line with the 3rd metacarpal. This measures ~3cm*1.5cm in size, and is fluid filled Possible ganglion cyst, though this appears more consistent with a possible extensor tenosynovitis Psych Appearance: grossly normal Affect: normal affect Attitude: cooperative Assessment & Plan Assessment & Plan (1) Numbness and tingling in right hand: Code(s): R20.0 - Anesthesia of skin; R20.2 - Paresthesia of skin (2) Mass of right hand: Code(s): R22.31 - Localized swelling, mass and lump, right upper limb Plan Assessment & Plan: 1. Right dorsal hand mass Measuring ~3cm*1.5cm in size Possible ganglion vs extensor tenosynovitis I educated him about this condition I discussed operative and non-operative treatment options I recommend we manage this conservatively for now while we await the results of his NCS in case he may also require a carpal tunnel release 2. Right hand numbness In the middle & ring fingers Symptoms intermittent, but daily, worse at night He says this numbness began following the development of his hand mass I ordered a NCS to assess for peripheral nerve compression He will follow up when completed for review and also to discuss further treatment of the dorsal hand mass Scribed for Peyton Smith MD by Marshal May, biomedical scientist, on 10/05/23 at 11:00 AM, EST. Orders: Orders NE nerve conduction velocity Today R20.0 - Anesthesia of skin, R20.2 - Paresthesia of skin Coding Level of Care Code New Pt Level 3 (54453) Diagnoses Numbness and tingling in right hand R20.0; R20.2 Mass of right hand R22.31
== END 2023-10-05 11:14 | disposition home or self-care (01) ==
PROVIDERS: PCP Family Medicine; Visit Provider Orthopaedic Surgery
DX: R20.0 Anesthesia of skin (principal); R20.2 Paresthesia of skin; R22.31 Localized swelling, mass and lump, right upper limb
CPT/HCPCS: 99203

== ENCOUNTER → 2023-10-05 10:27 | Outpatient (BNVA) | payer OTHER, SELFPAY | PROVIDERS: PCP Family Medicine; Visit Provider Orthopaedic Surgery | DX: R22.31 Localized swelling, mass and lump, right upper limb (principal); R20.0 Anesthesia of skin; R20.2 Paresthesia of skin | CPT/HCPCS: 99202 ==

== ENCOUNTER 2023-11-01 09:04 | Outpatient (REF) | payer OTHER, SELFPAY ==
--- NOTE | 2023-11-01 09:09 | EMG_ITS ---
Right median and ulnar motor and sensory studies were performed. Right radial and median and lateral antecubital brachial sensory studies were performed and paraspinal muscles were tested with a needle. IMPRESSION: 1. Mild right median neuropathy across carpal tunnel. 2. Mild right lower chronic cervical radiculopathy. MD SHAYLEE Kendall/RYLEE / [id number]
== END 2023-11-01 09:05 | disposition home or self-care (01) ==
LOC: HO.NEURO 09:04
PROVIDERS: PCP Family Medicine; Visit Provider Orthopaedic Surgery
DX: R20.0 Anesthesia of skin (principal); R20.2 Paresthesia of skin
CPT/HCPCS: 95886; 95910

== ENCOUNTER 2023-12-06 08:43 | Outpatient (REF) | payer OTHER, SELFPAY ==
--- NOTE | ~2023-12-06 | CT_ITS ---
EXAMINATION: CT ABDOMEN AND PELVIS WITH CONTRAST CLINICAL INFORMATION: Abdominal pain COMPARISON: Previous CT of the abdomen and pelvis most recent May 2017 and KUB November 2022 TECHNIQUE: Multidetector volumetric images were obtained from the superior aspect of the liver through the pubic symphysis following administration 85 mL of Omnipaque 350 intravenous contrast. Sagittal and coronal reformatted images were obtained on the technologist's workstation. Oral contrast: Yes This CT examination was performed using dose optimization techniques as appropriate, variously including the following: *Automated exposure control *Adjustment of mA and/or kV according to patient size (this includes techniques or standardized protocols for targeted exams where dose is matched to indication/reason for exam; i.e. extremities or head) *Use of iterative reconstruction technique DLP: 583 mGy-cm FINDINGS: LUNG BASES: The visualized lung bases are unremarkable. LIVER, GALLBLADDER, AND BILIARY TREE: The liver is normal in size, and shape. Liver is low in attenuation suggestive of fatty infiltration. No focal hepatic lesion or biliary ductal dilatation is present. The gallbladder is unremarkable with no evidence of radiopaque gallstones, gallbladder wall thickening, or obvious pericholecystic inflammatory changes. PANCREAS: Unremarkable. SPLEEN: Unremarkable. ADRENAL GLANDS: Unremarkable. KIDNEYS AND URETERS: The kidneys are normal in size, shape, and attenuation. No hydronephrosis, hydroureter, or calculi seen. Small left renal cyst. No imaging follow-up recommended. No perinephric stranding. BLADDER: Not optimally distended. Question mild diffuse bladder wall thickening and stranding of the perivesicular fat. GASTROINTESTINAL TRACT: Postsurgical changes to the sigmoid colon. Diverticulosis. No evidence of diverticulitis. Small and large bowel are otherwise normal. Normal appendix. Normal stomach. ABDOMINAL WALL: No significant hernia is appreciated. LYMPH NODES: Normal. VASCULAR: Unremarkable. PELVIC VISCERA: Unremarkable. OSSEOUS STRUCTURES: Postsurgical changes to the lower lumbar spine with posterior fusion hardware at L4 and S1 and interbody fusion at L4-L5 and L5-S1. Degenerative changes of the spine and hip joints. CT/CT abdomen pelvis w IV con IMPRESSION: Diverticulosis. No evidence of diverticulitis. Fatty liver. Question bladder wall thickening and stranding of the perivesicular fat. Correlate for cystitis. Fleischner guidelines were followed.
[2023-12-06 09:36] LABS: Blood Urea Nitrogen 15 mg/dL (9-16); Estimated Glomerular Filt Rate > 60
[2023-12-06] MEDS: iohexoL 350 MG/ML 100 ML INFUS..BTL 85 ML IV (10:22)
== END 2023-12-06 08:44 | disposition home or self-care (01) ==
LOC: HO.CT 08:43
PROVIDERS: Absent Provider Physician Assistant; PCP Family Medicine; Visit Provider Physician Assistant
DX: R10.9 Unspecified abdominal pain (principal); K52.9 Noninfective gastroenteritis and colitis, unspecified; G89.29 Other chronic pain; Z87.19 Personal history of other diseases of the digestive system
CPT/HCPCS: 36415; 74177; 82565; 84520; Q9967

== ENCOUNTER 2024-06-21 11:00 | Outpatient (AMB) | payer OTHER, SELFPAY ==
--- NOTE | 2024-06-21 11:43 | MHC.PC.OV ---
Vital Signs 06/21/24 11:45 Height 5 ft 10 in Weight 224 lb BMI 32.1 BP 110/70 Blood Pressure Location Lt brachial Position Sitting Respiration 16 Pulse 72 Pulse Source Pulse Oximeter Temp 97.8 F Temp Source Oral Pulse Oximetry (%) 95 Oxygen Delivery Method Room Air Intake Visit Reasons: F/U on neuro and gastro results Intake Note: f/u from neuro and gastro Allergies celecoxib [Celebrex] Adverse Reaction (Unknown, Verified 06/21/24 11:44) eyes swell Tobacco use date assessed: 08/30/23 Dental Screening Dental Screen Date: 08/30/23 HPI F/U on neuro and gastro results HPI Details 64 y/o male presents to f/u chronic conditions. Mass of R hand, had seen a hand specialist and pt notes they had recommended conservative care while they await results of his NCS in case he may also require a carpal tunnel release. Has complaints of knee pain, swelling x1 month. [facility], [facility] Family History Father No problems noted. Mother No problems noted. 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 Alexi Moreno, Amarilys White, Jesus Marcial and colleagues, with an educational padmini from [employer]. Review of Systems Const Denies chills, Denies fatigue, Denies fever(s), Denies headache(s) and Denies weakness ENT Denies dizziness and Denies headache(s) Card Denies dyspnea Resp Denies cough, Denies dyspnea, Denies wheezing and Denies other (shortness of breath) Musc Details: Knee pain Denies numbness and Denies tingling Neuro Denies dizziness, Denies headache(s), Denies numbness, Denies tingling and Denies weakness Psych Denies anxiety and Denies depression Endo Denies fatigue Aller/Immun Denies wheezing Physical exam (Primary Care) Vital Signs: Last Vital Signs Temp 97.8 F 06/21/24 11:45 Pulse 72 06/21/24 11:45 Resp 16 06/21/24 11:45 BP 110/70 06/21/24 11:45 Pulse Ox 95 06/21/24 11:45 Oxygen Delivery Method Room Air 06/21/24 11:45 BMI result Body Mass Index 32.1 Tobacco/Smoking Status: Tobacco use Status Tobacco use date assessed 08/30/23 06/21/24 11:48 Patient Tobacco Use Status Never used Tobacco 06/21/24 11:48 e-Cigarette/Vaping Use Never Used 06/21/24 11:48 Thrive Assessment: Date of Thrive Assessment Date Thrive assessed 11/24/21 06/21/24 11:48 Const General: well developed; No acute distress Nutritional Appearance: well nourished Orientation/consciousness: patient oriented x3 HENMT Head: Yes normocephalic and Yes atraumatic Eyes General: appearance normal, both eyes and all related structures Pupils: Equal, round and reactive pupils present EOM: EOMs intact bilaterally Resp Effort & Inspection: normal respiratory effort Neuro General: patient oriented x3 and gait normal Cranial nerves: Yes Equal, round and reactive pupils present Psych Affect: normal affect Coding Level of Care Code Est Pt Level 4 (10187) Diagnoses Mass of right hand R22.31 Numbness and tingling in right hand R20.0; R20.2 Chronic abdominal pain R10.9; G89.29 Knee pain M25.569 Assessment & Plan Assessment & Plan (1) Mass of right hand: Code(s): R22.31 - Localized swelling, mass and lump, right upper limb Category: Medical Plan: Likely?tenosynovitis?versus?ganglion?cyst?on?the?back?of?his?right?hand. However,?patient?also?has?swelling?and?tightness?of?his?hands?fingers?and?thumbs?with?stiffness?in?the?morning. Likely?tendinitis/tenosynovitis This?appears?to?be?getting?worse,?particularly?with?his?thumbs?in?may?be?de?Quervain?tenosynovitis?there-advised?him?to?contact?his?hand?specialist?to?discuss?advancing?from?conservative?care?to?injection?therapy?for?his?thumbs?as?he?is?having?diffic ulty?holding?objects. (2) Numbness and tingling in right hand: Code(s): R20.0 - Anesthesia of skin; R20.2 - Paresthesia of skin Category: Medical Plan: Patient?has?numbness?and?tingling?in?fingers?which?appears?to?be?a?separate?issue?from?the?pain?swelling?and?stiffness?mentioned?above. He?has?a?positive?conduction?test?showing?carpal?tunnel He?notes?that?he?sleeps?with?his?wrists?fully?flexed?and?sometimes?under?his?chin. Will?give?him?a?wrist?brace?to?wear?loosely?and?prevent?flexion?of?his?wrist. He?should?follow-up?with?Neurology?if?not?improving (3) Chronic abdominal pain: Code(s): R10.9 - Unspecified abdominal pain; G89.29 - Other chronic pain Category: Medical Plan: Patient?has?history?of?diverticulosis.??CT?scan?November?showed?no?evidence?of?diverticulitis?at?that?time. Advised?good?hydration?and?can?try?a?soluble?fiber?tablet.??He?also?use?his?GI?bowel?regimen Follow-up?with?Gastroenterology Also?due?for?follow-up?colonoscopy I?have?referred?him?back?to?GI (4) Knee pain: Code(s): M25.569 - Pain in unspecified knee Category: Medical Plan: Right?knee?pain?with?some?fluctuance?at?joint?spaces.??No?erythema?or?warmth.? Check?x-ray Will?follow-up?to?discuss?next?steps Orders: Orders XR knee RT 3V Today M25.569 - Pain in unspecified knee Referrals Gastroenterology Referral G89.29 - Other chronic pain, R10.9 - Unspecified abdominal pain, Z12.11 - Encounter for screening for malignant neoplasm of colon
[2024-06-21 11:45] VITALS: BP 110/70; PULSE 72; RESP 16; TEMP 36.6; O2SAT 95; BMI 32.1
== END 2024-06-21 12:49 | disposition home or self-care (01) ==
PROVIDERS: PCP Family Medicine; Visit Provider Family Medicine
DX: R22.31 Localized swelling, mass and lump, right upper limb (principal); R20.0 Anesthesia of skin; R20.2 Paresthesia of skin; R10.9 Unspecified abdominal pain; G89.29 Other chronic pain; M25.569 Pain in unspecified knee

== ENCOUNTER → 2024-06-21 11:00 | Outpatient (BNVA) | payer OTHER, SELFPAY | PROVIDERS: PCP Family Medicine; Visit Provider Family Medicine | DX: R22.31 Localized swelling, mass and lump, right upper limb (principal); R20.0 Anesthesia of skin; R20.2 Paresthesia of skin; R10.9 Unspecified abdominal pain; G89.29 Other chronic pain; M25.561 Pain in right knee | CPT/HCPCS: 99212 ==

== ENCOUNTER 2024-06-25 11:59 | Outpatient (REF) | payer OTHER, SELFPAY ==
--- NOTE | ~2024-06-25 | XR_ITS ---
EXAMINATION: XR KNEE, RIGHT CLINICAL INFORMATION: M25.569 - Pain in unspecified knee COMPARISON: None available. TECHNIQUE: Four views of the right knee. FINDINGS: No acute fracture or joint effusion. Alignment is anatomic. Joint spaces are maintained. No abnormal soft tissue calcification. XR/XR knee RT 4V IMPRESSION: Unremarkable right knee. Electronically signed by: Barry Logan MD 06/25/2024 12:42 PM EST
== END 2024-06-25 12:00 | disposition home or self-care (01) ==
LOC: HO.HMGCX 11:59
PROVIDERS: PCP Family Medicine; Visit Provider Family Medicine
DX: M25.561 Pain in right knee (principal)
CPT/HCPCS: 73564

== ENCOUNTER → 2024-06-25 12:03 | Outpatient (BNV) | payer OTHER, SELFPAY | PROVIDERS: PCP Family Medicine; Visit Provider Radiology Diagnostic Radiology | DX: M25.561 Pain in right knee (principal) | CPT/HCPCS: 73564 ==

== ENCOUNTER → 2024-06-29 15:10 | Outpatient (BNVA) | payer OTHER, SELFPAY | PROVIDERS: PCP Family Medicine; Visit Provider Nurse Practitioner Family | DX: R10.32 Left lower quadrant pain (principal); K52.9 Noninfective gastroenteritis and colitis, unspecified; K59.03 Drug induced constipation; G89.29 Other chronic pain; Z87.19 Personal history of other diseases of the digestive system | CPT/HCPCS: 99212 ==

== ENCOUNTER 2024-08-15 13:00 | Outpatient (REF) | payer OTHER, SELFPAY ==
[2024-08-15 14:31] LABS: Alanine Aminotransferase 51 U/L (0-40); Albumin Level 4.3 g/dL (3.5-5.0); Alkaline Phosphatase 89 U/L (39-117); Aspartate Amino Transferase 31 U/L (5-37); Bilirubin Direct 0.3 mg/dL (0.0-0.5); Bilirubin Total 0.7 mg/dL (0.0-1.0); Lipase 14 U/L (8-78); Total Protein 7.5 g/dL (6.5-8.0)
[2024-08-15 14:34] LABS: TSH reflex Free T4 2.75 uIU/mL (0.32-4.0)
[2024-08-15 14:49] LABS: Folate 12.3 ng/mL (> or = 4.0); Vitamin B12 337 pg/mL (200-900)
[2024-08-19 13:12] LABS: Vitamin D 25-OH, D2 <4 ng/mL; Vitamin D 25-OH, D3 23 ng/mL; Vitamin D 25-OH, Total 23 ng/mL (30-100)
== END 2024-08-15 13:01 | disposition home or self-care (01) ==
LOC: HO.LAB 13:00
PROVIDERS: PCP Family Medicine; Visit Provider Nurse Practitioner Family
DX: R19.7 Diarrhea, unspecified (principal); R74.01 Elevation of levels of liver transaminase levels; E55.9 Vitamin D deficiency, unspecified; R10.9 Unspecified abdominal pain; K59.00 Constipation, unspecified
CPT/HCPCS: 36415; 80076; 82306; 82607; 82746; 83690; 84443

== ENCOUNTER 2024-08-20 10:21 | Outpatient (AMB) | payer OTHER, SELFPAY ==
--- NOTE | 2024-08-20 10:23 | A.OFFPC_ITS ---
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 Required: No Allergies celecoxib [Celebrex] Adverse Reaction (Unknown, Verified 08/20/24 10:26) eyes swell Medication List - Last Reconciled 08/20/24 by Tanmay Biswas MD calcium polycarbophil (FiberCon) 625 mg PO DAILY 30 days cetirizine 10 mg PO DAILY cholecalciferol (vitamin D3) 50 mcg PO DAILY 30 days clotrimazole-betamethasone 1-0.05 % 1 appl topical BID 2 weeks cyclobenzaprine 10 mg PO TID PRN hydrochlorothiazide 12.5 mg PO DAILY 90 days ibuprofen 800 mg PO Q8H PRN meloxicam 15 mg PO DAILY 30 days methylcellulose (laxative) (Citrucel) 500 mg PO TID PRN mupirocin 2% 1 appl topical BID 30 days oxycodone ER (OxyContin) 0 mg PO polyethylene glycol 3350 (Miralax) 17 grams PO DAILY 14 days sennosides (Natural Senna Laxative) 17.2 mg (2 x 8.6 mg) PO BEDTIME Tobacco use date assessed: 08/30/23 Dental Screening Dental Screen Date: 08/30/23 HPI F/U on neuro and gastro results HPI Details 64 y/o male presents to f/u chronic abd. pain, chronic conditions. Labs drawn 08/15/24. Reviewed labs with pt. Elevated ALT of 51. Low vitamin D of 23 ng/mL. Had seen GI - recommended probiotics, resume fiber and senna daily. Chronic abd. pain mildly improving. [facility] Family History Father No problems noted. Mother No problems noted. 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 Current occupational exposures/hazards: No Cognitive needs: No Hearing needs: No Vision needs: Yes Questionnaire Thrive Questionnaire Date Thrive assessed: 08/15/24 I am a: Patient What is your living situation today?: I have a steady place to live Within the past 12 months, did the food you bought not last and you didn't have the money to get more?: Sometimes True Within the past 12 months, did you worry whether your food would run out before you got money to buy more?: Sometimes True Do you have trouble paying for medicines?: Yes Do you have trouble getting transportation to medical appointments?: Yes Do you have trouble paying your heating and electricity bill?: Yes Do you have trouble taking care of your child, family member or friend?: No Do you have trouble with day-to-day activities such as bathing, preparing meals, shopping, managing finances, etc.?: Yes Are you currently unemployed and looking for a job?: No Are you interested in more education?: Yes Please select the resources that you would like help with: Food and Utilities Currently or been in a relationship where the following occur: No concerns reported THRIVE Score: 4 AUDIT C Alcohol Use Questionnaire (AUDIT-C) 1. How often do you have a drink containing alcohol?: 2-4 times a month 2. How many drinks containing alcohol do you have on a typical day when you are drinking?: 1 or 2 3. How often do you have six or more drinks on one occasion?: Never Total Score: 2 PAYTON-7 AMB Questionnaire PAYTON-7 Date PAYTON - 7 assessed: 07/15/23 Feeling nervous, anxious, or on edge: 1 = Several days Not being able to stop or control worryin = Several days Worrying too much about different things: 1 = Several days Trouble relaxin = Several days Being so restless that it is hard to sit still: 0 = Not at all Becoming easily annoyed or irritable: 1 = Several days Feeling afraid as if something awful might happen: 1 = Several days Total PAYTON-7 score (0-4 normal; 5-9 mild; 10-14 moderate; 15-21 severe): 6 Source: Developed by Drs. Alexi LAmarilys Cross Kurt Kroenke and colleagues, with an educational padmnii from [employer]. Physical exam (Primary Care) Vital Signs: Last Vital Signs Temp 98.0 F 08/20/24 10:28 Pulse 81 08/20/24 10:28 Resp 14 08/20/24 10:28 BP 126/80 08/20/24 10:28 Pulse Ox 98 08/20/24 10:28 Oxygen Delivery Method Room Air 08/20/24 10:28 BMI result Body Mass Index 31.9 Tobacco/Smoking Status: Tobacco use Status Tobacco use date assessed 08/30/23 08/20/24 10:24 Patient Tobacco Use Status Never used Tobacco 08/20/24 10:24 e-Cigarette/Vaping Use Never Used 08/20/24 10:24 Thrive Assessment: Date of Thrive Assessment Date Thrive assessed 08/15/24 08/20/24 10:24 Currently or been in a relationship where the following occur: No concerns reported Coding Level of Care Code Est Pt Level 4 (93531) Diagnoses Chronic abdominal pain R10.9; G89.29 Knee pain M25.569 Low vitamin D level R79.89 Numbness and tingling in right hand R20.0; R20.2 Back pain M54.9 Assessment & Plan Assessment & Plan (1) Chronic abdominal pain: Code(s): R10.9 - Unspecified abdominal pain; G89.29 - Other chronic pain Category: Medical Plan: Improving?slowly?with?current?medication? regimen?from?Gastroenterology?including?senna,?probiotic good?hydration. Follow-up?with?GI?as?recommended. (2) Knee pain: Code(s): M25.569 - Pain in unspecified knee Category: Medical Plan: Ongoing?knee?pain. X-ray?was?unremarkable Will?refer?to?ortho He?takes?ibuprofen.??Does?not?tolerate?celecoxib. Will?try?meloxicam (3) Low vitamin D level: Code(s): R79.89 - Other specified abnormal findings of blood chemistry Category: Medical Plan: Sending?script?for?vitamin?D (4) Numbness and tingling in right hand: Code(s): R20.0 - Anesthesia of skin; R20.2 - Paresthesia of skin Category: Medical Plan: Patient?had?lump?on?dorsal?aspect?of?his?right?hand?which?has?resolved. Still?has?carpal?tunnel?syndrome?bilateral?hands Follow-up?with?hand?surgeon?as?recommended (5) Back pain: Code(s): M54.9 - Dorsalgia, unspecified Category: Medical Plan: Ongoing?and?longstanding?back?pain. He?is?followed?by[facility]?above,?can?try?switching?ibuprofen?to?meloxicam Follow-up?with??Gianni?as?recommended Orders: Referrals Orthopedics Referral M25.569 - Pain in unspecified knee Medications: New cholecalciferol (vitamin D3) 50 mcg PO DAILY 30 days 30 caps 3RF meloxicam 15 mg PO DAILY 30 days 30 tabs 2RF
[2024-08-20 10:28] VITALS: BP 126/80; PULSE 81; RESP 14; TEMP 36.7; O2SAT 98; BMI 31.9
== END 2024-08-20 10:58 | disposition home or self-care (01) ==
PROVIDERS: PCP Family Medicine; Visit Provider Family Medicine
DX: R10.9 Unspecified abdominal pain (principal); G89.29 Other chronic pain; M25.569 Pain in unspecified knee; R79.89 Other specified abnormal findings of blood chemistry; R20.0 Anesthesia of skin; R20.2 Paresthesia of skin; M54.9 Dorsalgia, unspecified

== ENCOUNTER → 2024-08-20 10:21 | Outpatient (BNVA) | payer OTHER, SELFPAY | PROVIDERS: PCP Family Medicine; Visit Provider Family Medicine | DX: R10.9 Unspecified abdominal pain (principal); G89.29 Other chronic pain; R79.89 Other specified abnormal findings of blood chemistry; R20.0 Anesthesia of skin; R20.2 Paresthesia of skin; M54.9 Dorsalgia, unspecified | CPT/HCPCS: 99212 ==

== ENCOUNTER 2024-10-03 08:30 | Outpatient (AMB) | payer OTHER, SELFPAY ==
--- NOTE | 2024-10-03 08:33 | A.OFFVIS_ITS ---
Vital Signs 10/03/24 08:34 Height 5 ft 10 in Weight 222 lb BMI 31.9 Intake Visit Reasons: OV-Right wrist/hand EMG/NCS 11/01/23 review Intake Note: Carl 64 yr old male presents today for his EMG review for his right hand. State his cyst is no longer there but he has a little discomfort. Patient is unsure about CTR surgery and would like to discuss more regarding surgery. IMPRESSION: 1. Mild right median neuropathy across carpal tunnel. 2. Mild right lower chronic cervical radiculopathy. Allergies celecoxib [Celebrex] Adverse Reaction (Unknown, Verified 10/03/24 08:55) eyes swell HPI HPI OV-Right wrist/hand EMG/NCS 11/01/23 review: Details: Carl is a 64 year old right hand dominant man who returns for a NCS review of his right hand numbness He complains of numbness in his right hand for ~1 year now. Symptoms intermittent, but daily, worse at night & when waking up. He also complains of left hand numbness, in the median nerve distribution. He says the sensation is exactly the same as his right hand. He says that he had both sides tested on his NCS, done on 11/01/23, but there are no results for this. He had a Hx of a right dorsal hand mass, but says this resolved on its own. He says he is out of work on disability due to a hx of previous spine fusions. [facility] Family History Father No problems noted. Mother No problems noted. 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 Current occupational exposures/hazards: No Cognitive needs: No Hearing needs: No Vision needs: Yes Review of Systems Const All systems reviewed & are unremarkable except as noted in HPI and below Physical Exam Vital Signs: BMI result Body Mass Index 31.9 Const General: no acute distress and alert Orientation/consciousness: patient oriented x3 Neuro General: patient oriented x3 Extrem Other: Evaluation of Right Upper Extremity: The patient is alert, oriented, and in no acute distress Neuro: Median, Ulnar, Radial nerves motor and sensory intact and sensation is normal to the tips of all digits No thenar or intrinsic wasting Good APB muscle belly firing and good finger cross Vascular: Cap refill brisk ROM: He can make a fist and extend all his digits No locking or catching Nerve Conduction Study Right-side only IMPRESSION: 1. Mild right median neuropathy across carpal tunnel. 2. Mild right lower chronic cervical radiculopathy. Miley Maria MD 11/01/2023 Psych Appearance: grossly normal Affect: normal affect Attitude: cooperative Assessment & Plan Assessment & Plan (1) Carpal tunnel syndrome of right wrist: Code(s): G56.01 - Carpal tunnel syndrome, right upper limb Category: Medical (2) Cervical radiculopathy: Code(s): M54.12 - Radiculopathy, cervical region Category: Medical (3) Numbness and tingling in left hand: Code(s): R20.0 - Anesthesia of skin; R20.2 - Paresthesia of skin Category: Medical Plan Assessment & Plan: 1. Right carpal tunnel syndrome, mild Symptoms intermittent, but daily, worse at night 2. Right lower chronic cervical radiculopathy, mild Seen on NCS I educated him about this condition I discussed operative and non-operative treatment options The patient would like to proceed with surgery The risks and benefits of operative treatment were discussed with the patient and the patient wishes to proceed with surgery. These risks include, but are not limited to risk of damage to blood vessels, nerves, tendons, infection, recurrence, incomplete relief of preoperative symptoms, persistent pain, possible need for further surgery and the risks associated with regional blocks and anesthesia. The plan is to take the patient to the operating room sometime in the next few weeks for the following procedures: 1. Right carpal tunnel release, under local All of the preoperative paperwork including the consent was reviewed today. All the patient's questions were answered. The patient understands that they will be contacted by our professor of surgery soon to schedule this procedure He denies Diabetes, blood thinners, asthma, heart, lung, kidney issues 3. Left hand numbness In the median nerve distribution Symptoms intermittent, but daily, worse at night Patient reports his symptoms are exactly the same as his right carpal tunnel syndrome He reports that he had both sides tested on his NCS, but there are no records or results of his left side being tested We will discuss this issue and treatment options when his right side has recovered. If symptoms are only in the median nerve distribution we could proceed without a nerve conduction study for the left side if he would like Scribed for Peyton Smith MD by Marshal May, administrative medical director, on 10/03/24 at 9:05 AM, EST. Scribe Plan - Not visible on output: Scribed for Peyton Smith MD by Marshal May administrative medical director, on [ ] at [ ], EST. Coding Level of Care Code Est Pt Level 4 (90881) Diagnoses Carpal tunnel syndrome of right wrist G56.01 Cervical radiculopathy M54.12 Numbness and tingling in left hand R20.0; R20.2
[2024-10-03 08:34] VITALS: BMI 31.9
== END 2024-10-03 09:18 | disposition home or self-care (01) ==
LOC: HO.HOS 08:30
PROVIDERS: PCP Family Medicine; Visit Provider Orthopaedic Surgery
DX: G56.01 Carpal tunnel syndrome, right upper limb (principal); M54.12 Radiculopathy, cervical region; R20.0 Anesthesia of skin; R20.2 Paresthesia of skin
CPT/HCPCS: 99214

== ENCOUNTER → 2024-10-03 08:30 | Outpatient (BNVA) | payer OTHER, SELFPAY | PROVIDERS: PCP Family Medicine; Visit Provider Orthopaedic Surgery | DX: G56.01 Carpal tunnel syndrome, right upper limb (principal); M54.12 Radiculopathy, cervical region; R20.0 Anesthesia of skin; R20.2 Paresthesia of skin | CPT/HCPCS: 99212 ==

== ENCOUNTER 2024-10-18 09:59 | Outpatient (AMB) | payer OTHER, SELFPAY ==
--- NOTE | 2024-10-18 10:00 | MHC.OFFVIS ---
Intake Visit Reasons: New Problem - Right Knee Pain Intake Note: Carl is a 64 year old male who presents today for a new problem visit with complaints of right knee pain. Patient reports that he has has intermittent pain for years now but worsening the last three months now. He explains that his knee was significantly painful, it was excruciating to the touch. He takes oxycontin daily for his back and takes the ibuprofen PRN. He has some numbness in the knee. The knee has started to improve recently Allergies celecoxib [Celebrex] Adverse Reaction (Unknown, Verified 10/18/24 10:04) eyes swell HPI HPI New Problem - Right Knee Pain: Details: Carl is a 64 year old male who presents today for a new problem visit with complaints of right knee pain. Patient reports that he has has intermittent pain for years now but worsening the last three months now. He explains that his knee was significantly painful, it was excruciating to the touch. He takes oxycontin daily for his back and takes the ibuprofen PRN. He has some numbness in the knee. The knee has started to improve recently. He actually considered cancelling the appointment but it took him awhile to get in so he comes in to discuss. His history of neuropathic pain is extensive. He had a lumbar surgery many years ago and it was helpful but he continues to have leg pain with numbness and tingling and most recently he was having pain over the lateral aspect of his right knee. He states the sheets were rubbing against his skin and causing severe pain and he is still has numbness in that region. [facility] Family History Father No problems noted. Mother No problems noted. 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 No effusion. Ligamentously stable exam. He does have diminished sensation over the lateral aspect of the knee joint. No skin changes. Not painful to touch. Results Reviewed Results Reviewed: I personally reviewed relevant radiographs. Normal right knee radiographs Assessment & Plan Assessment & Plan (1) Right knee pain: Code(s): M25.561 - Pain in right knee Category: Medical Plan: Right knee pain that is improving with a benign exam. Likely neuropathic. Follow up as needed but no intervention warranted at this time. Coding Level of Care Code Est Pt Level 3 (64875) Diagnoses Right knee pain M25.561
== END 2024-10-18 10:24 | disposition home or self-care (01) ==
LOC: HO.HOS 10:00
PROVIDERS: PCP Family Medicine; Visit Provider Orthopaedic Surgery
DX: M25.561 Pain in right knee (principal)
CPT/HCPCS: 99213

== ENCOUNTER → 2024-10-18 09:59 | Outpatient (BNVA) | payer OTHER, SELFPAY | PROVIDERS: PCP Family Medicine; Visit Provider Orthopaedic Surgery | DX: M25.561 Pain in right knee (principal) | CPT/HCPCS: 99212 ==

== ENCOUNTER 2024-11-09 10:22 | Outpatient (AMB) | payer OTHER, SELFPAY ==
--- NOTE | 2024-11-09 10:31 | A.OFFVIS_ITS ---
Vital Signs 11/09/24 10:40 Height 5 ft 10 in Weight 225 lb BMI 32.3 BP 146/92 H Blood Pressure Location Lt brachial Position Sitting Pulse 74 Pulse Source Pulse Oximeter Pulse Oximetry (%) 96 Oxygen Delivery Method Room Air Intake Visit Reasons: 2 mo f/u up & Discuss [facility] r/s 08/28/24 Intake Note: ESTABLISHED PATIENT for mgmt of IBS mixed. CC; C.O. persistence of IBS - C. Pt states that he stopped taking senna as he was having severe diarrhea / loose stools. Pt is back to baseline since stopping the med but has not improved with the miralax or citrucel. Pt still would like to discuss colo. Media Buyer Required: No Accompanied by: Self / Same As Patient Allergies celecoxib [Celebrex] Adverse Reaction (Unknown, Verified 11/09/24 10:37) eyes swell HPI HPI 2 mo f/u up & Discuss [facility] r/s 08/28/24: Details: LAST VISIT Chronic abdominal pain History of diverticulitis Chronic diarrhea Left lower quadrant abdominal pain Constipation Plan Occasional postprandial loose stools, will have patient take fiber with probiotics. Occasional epigastric pain without nausea or vomiting. Will check lipase to rule out chronic pancreatitis. Will check vitamin B12, folate, v itamin-D as well as thyroid studies. Patient will start taking senna daily. Increase fluid intake and activity to promote better bowel motility. Patient will return in 2 months. Message sent to surgical schedulers to book procedure for patient. We will discuss prep and lab results next visit. He is agreeable to this plan and verbalizes understanding of instructions. He was given the opportunity to ask questions and all questions answered. ? Thank you for allowing me to participate in his care Orders Orders Vitamin B12 and Folate 06/29/24 R19.7 Liver Panel 06/29/24 R74.01 Vitamin D 25-OH (D2 and D3) 06/29/24 E55.9 Lipase 06/29/24 R10.9 TSH reflex Free T4 06/29/24 K59.00 Medications New sennosides (Natural Senna Laxative) 17.2 mg (2 x 8.6 mg) PO BEDTIME 60 tabs 1RF constipation K59.00 TODAY'S VISIT: Patient is here today to discuss the prep and going for colonoscopy. Patient reports that his symptoms still continue occasionally. Patient was taking senna, however this was causing frequent and loose stools. Patient was getting fiber supplement instead and MiraLax. Patient denies melena, hematochezia, unintentional weight loss or ribbon like stools. Denies any dyspepsia, dysphagia or odynophagia. Patient denies any issues with anesthesia in the past. No history of sleep apnea. Not on any anticoagulation medication. Patient denies any cardiac or respiratory symptoms. Patient reports that he will be having carpal tunnel surgery in November. Patient feels like his pain is related to his neck. Tingling going down his arm [facility] Family History Father No problems noted. Mother No problems noted. 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 Current occupational exposures/hazards: No Cognitive needs: No Hearing needs: No Vision needs: Yes Review of Systems Const Denies weight gain and Denies weight loss ENT Reports no additional complaints, Denies dysphagia and Denies odynophagia Card Reports no additional complaints Resp Reports no additional complaints GI Denies abdominal pain, Denies belching, Denies melena, Reports bloating, Denies change in bowel habits, Reports constipation, Denies dysphagia, Denies excessive flatus, Denies dyspepsia, Denies heartburn, Denies diarrhea, Reports loose stools, Denies nausea, Denies odynophagia and Denies vomiting Reports no additional complaints Musc Reports no additional complaints Neuro Reports no additional complaints Psych Reports no additional complaints Endo Reports no additional complaints Physical Exam Vital Signs: Last Vital Signs Pulse 74 11/09/24 10:40 BP 146/92 H 11/09/24 10:40 Pulse Ox 96 11/09/24 10:40 Oxygen Delivery Method Room Air 11/09/24 10:40 BMI result Body Mass Index 32.3 Const General: cooperative, comfortable and no acute distress Nutritional Appearance: obese Orientation/consciousness: patient oriented x3 Limitations: no limitations Eyes Sclerae: sclerae normal Resp Effort & Inspection: normal respiratory effort and able to speak in complete sentences Auscultation: clear to auscultation bilaterally, no rales, no rhonchi and no wheezes GI Inspection: No distended and Yes obesity Palpation (GI): Soft to palpation, nontender and no guarding Auscultation: normal bowel sounds Skin General skin exam: no rashes or lesions noted Neuro General: patient oriented x3 Extrem General: Yes full ROM Psych Mental Status: mental status grossly normal Speech and movement: Clear speech present Results Reviewed Results Reviewed: Laboratory Tests 08/15/24 13:08 Total Bilirubin 0.7 Direct Bilirubin 0.3 AST 31 ALT 51 H Alkaline Phosphatase 89 Lipase 14 Vitamin B12 337 25-OH Vitamin D Total 23 L Folate 12.3 TSH 2.75 Assessment & Plan Assessment & Plan (1) Cervical radiculopathy: Code(s): M54.12 - Radiculopathy, cervical region Category: Medical (2) Chronic abdominal pain: Code(s): R10.9 - Unspecified abdominal pain; G89.29 - Other chronic pain Category: Medical (3) History of diverticulitis: Code(s): Z87.19 - Personal history of other diseases of the digestive system Category: Medical (4) Chronic diarrhea: Code(s): K52.9 - Noninfective gastroenteritis and colitis, unspecified Category: Medical (5) Left lower quadrant abdominal pain: Code(s): R10.32 - Left lower quadrant pain Category: Medical (6) Constipation: Code(s): K59.00 - Constipation, unspecified Category: Medical Qualifiers: Constipation type: drug induced constipation Qualified Code(s): K59.03 - Drug induced constipation Plan What to expect before during and after procedure discussed with patient. Stressed the importance of good bowel prep and diet day before procedure. Patient reports neck pain, severe radiating to both of his arms, greater in the right than left. Referral to neurosurgery. I will see patient after the procedure. He was encouraged to increase fiber, however stop fiber for week before the procedure. He will call our office if he will have any GI concerning symptoms. He is agreeable to this plan and verbalizes understanding of instructions. He was given the opportunity to ask questions and all questions answered. Thank you for allowing me to participate in his care Orders: Referrals Neurosurgery Referral M54.12 - Radiculopathy, cervical region, R20.0 - Anesthesia of skin, R20.2 - Paresthesia of skin Medications: New bisacodyl (Dulcolax (bisacodyl)) take 4 tabs at noon the day before your colonoscopy 20 mg (4 x 5 mg) PO ONCE 1 day 4 tabs 0RF Z12.11 - Encounter for screening for malignant neoplasm of colon polyethylene glycol 3350 (Miralax) As directed by gastroenterology department at [facility] 238 grams PO ONCE 238 grams 0RF Z12.11 - Encounter for screening for malignant n eoplasm of colon Changed From methylcellulose (laxative) (Citrucel) 500 mg PO TID PRN 90 tabs 5RF constipation To methylcellulose (laxative) (Citrucel) 500 mg PO DAILY 90 tabs 5RF constipation Coding Level of Care Code Est Pt Level 4 (63266) Complex EM visit Add On G2211 Diagnoses Cervical radiculopathy M54.12 Chronic abdominal pain R10.9; G89.29 History of diverticulitis Z87.19 Chronic diarrhea K52.9 Left lower quadrant abdominal pain R10.32 Drug-induced constipation K59.03 Constipation type: drug induced constipation Time Spent (min) 35 Comment 25 minutes spent with patient and additional 10 minutes spent reviewing his records
[2024-11-09 10:40] VITALS: BP 146/92; PULSE 74; O2SAT 96; BMI 32.3
== END 2024-11-09 11:05 | disposition home or self-care (01) ==
LOC: HO.HGI 10:23
PROVIDERS: PCP Family Medicine; Visit Provider Nurse Practitioner Family
DX: M54.12 Radiculopathy, cervical region (principal); R10.9 Unspecified abdominal pain; G89.29 Other chronic pain; Z87.19 Personal history of other diseases of the digestive system; K52.9 Noninfective gastroenteritis and colitis, unspecified; R10.32 Left lower quadrant pain; K59.03 Drug induced constipation
CPT/HCPCS: 99214; G2211

== ENCOUNTER → 2024-11-09 10:22 | Outpatient (BNVA) | payer OTHER, SELFPAY | PROVIDERS: PCP Family Medicine; Visit Provider Nurse Practitioner Family | DX: K59.03 Drug induced constipation (principal); K52.9 Noninfective gastroenteritis and colitis, unspecified; M54.12 Radiculopathy, cervical region; R10.32 Left lower quadrant pain; G89.29 Other chronic pain; Z87.19 Personal history of other diseases of the digestive system | CPT/HCPCS: 99212 ==

== ENCOUNTER 2024-12-25 10:28 | Outpatient (AMB) | payer OTHER, SELFPAY ==
--- NOTE | 2024-12-25 10:39 | A.OFFPC_ITS ---
Vital Signs 12/25/24 10:44 Height 5 ft 10 in Weight 218 lb 8 oz BMI 31.3 BP 116/72 Blood Pressure Location Lt brachial Position Sitting Respiration 14 Pulse 69 Pulse Source Pulse Oximeter Temp 98.2 F Temp Source Temporal Artery Scan Pulse Oximetry (%) 96 Oxygen Delivery Method Room Air Intake Visit Reasons: f/u chronic conditions Intake Note: Carl presents in the office today for a follow up. Allergies celecoxib (Celebrex) Adverse Reaction (Unknown, Verified 12/25/24 10:41) eyes swell Medication List - Last Reconciled 12/25/24 by Tanmay Biswas MD bisacodyl (Dulcolax (bisacodyl)) 20 mg (4 x 5 mg) PO ONCE 1 day cetirizine 10 mg PO DAILY cholecalciferol (vitamin D3) 50 mcg PO DAILY 30 days clotrimazole-betamethasone 1-0.05 % 1 appl topical BID 2 weeks cyclobenzaprine 10 mg PO TID PRN hydrochlorothiazide 12.5 mg PO DAILY 90 days ibuprofen 800 mg PO Q8H PRN meloxicam 15 mg PO DAILY 30 days methylcellulose (laxative) (Citrucel) 500 mg PO DAILY mupirocin 2% 1 appl topical BID 30 days oxycodone ER (OxyContin) 0 mg PO polyethylene glycol 3350 (Miralax) 17 grams PO DAILY 14 days polyethylene glycol 3350 (Miralax) 238 grams PO ONCE sennosides (Natural Senna Laxative) 17.2 mg (2 x 8.6 mg) PO BEDTIME Tobacco use date assessed: 12/25/24 Dental Screening Dental Screen Date: 12/25/24 Did you have a dental visit in the last 12 months?: No Did you have a dental problem in the last 6 months where you did not have access to dental care?: No Was dental information given to patient?: Patient declined HPI f/u chronic conditions HPI Details 64 y/o male presents to f/u chronic cond itions. Blood pressure today 116/72, 69p. He is on hydrochlorothiazide 12.5mg daily. Notes he has been following up with hand surgery for carpal tunnel syndrome, R wrist. Has been using a wrist brace at night which has been helping. Complaints of profuse sweating. Denies chest pain, weakness, or dizziness or nausea. HPI Comments History of Present Illness Details Documentation assistance for Tanmay Biswas MD, was provided by Noam Parekh,? Timber Framer on 12/25/2024 at 11:28 AM EST. I, Dr. Biswas, have read, observed, and verified documentation. ?? [facility] Family History Father No problems noted. Mother No problems noted. 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 1. Little interest or pleasure in doing things: several days 2. Feeling down, depressed, or hopeless: several days 3. Trouble falling or staying asleep, or sleeping too much: several days 4. Feeling tired or having little energy: several days 5. Poor appetite or overeating: several days 6. Feeling bad about yourself - or that you are a failure or have let yourself or your family down: not at all 7. Trouble concentrating on things, such as reading the newspaper or watching television: several days 8. Moving or speaking so slowly that other people could have noticed. Or the opposite - being so fidgety or restless that you have been moving around a lot more than usual: not at all 9. Thoughts that you would be better off or of hurting yourself in some way: not at all Total score: 6 Depression Screening Interpretation: Positive Depression Screening Done: Yes 66465 - PHQ-9 Billing: Yes Source: Developed by Drs. Alexi Moreno, Amarilys White, Jesus Marcial and colleagues, with an educational padmini from [employer]. Thrive Questionnaire Date Thrive assessed: 08/15/24 I am a: Patient What is your living situation today?: I have a steady place to live Within the past 12 months, did the food you bought not last and you didn't have the money to get more?: Sometimes True Within the past 12 months, did you worry whether your food would run out before you got money to buy more?: Sometimes True Do you have trouble paying for medicines?: Yes Do you have trouble getting transportation to medical appointments?: Yes Do you have trouble paying your heating and electricity bill?: Yes Do you have trouble taking care of your child, family member or friend?: No Do you have trouble with day-to-day activities such as bathing, preparing meals, shopping, managing finances, etc.?: Yes Are you currently unemployed and looking for a job?: No Are you interested in more education?: Yes Currently or been in a relationship where the following occur: No concerns reported THRIVE Score: 4 PAYTON-7 AMB Questionnaire PAYTON-7 Date PAYTON - 7 assessed: 07/15/23 Feeling nervous, anxious, or on edge: 0 = Not at all Not being able to stop or control worryin = Not at all Worrying too much about different things: 0 = Not at all Trouble relaxin = Not at all Being so restless that it is hard to sit still: 0 = Not at all Becoming easily annoyed or irritable: 0 = Not at all Feeling afraid as if something awful might happen: 0 = Not at all Total PAYTON-7 score (0-4 normal; 5-9 mild; 10-14 moderate; 15-21 severe): 0 Source: Developed by Drs. Alexi Moreno, Amarilys White, Jesus Marcial and colleagues, with an educational padmini from [employer]. PAYTON-7 Assessment Billing PAYTON-7 Assessment Tool: PAYTON-7 Assessment 17513 Review of Systems Const Denies chills, Reports excessive sweating, Denies fatigue, Denies fever(s), Denies headache(s) and Denies weakness ENT Denies dizziness and Denies headache(s) Card Denies dyspnea Resp Denies cough, Denies dyspnea, Denies wheezing and Denies other (shortness of breath) Musc Denies numbness and Denies tingling Neuro Denies dizziness, Denies headache(s), Denies numbness, Denies tingling and Denies weakness Psych Denies anxiety and Denies depression Endo Reports excessive sweating and Denies fatigue Aller/Immun Denies wheezing Physical exam (Primary Care) Vital Signs: Last Vital Signs Temp 98.2 F 12/25/24 10:44 Pulse 69 12/25/24 10:44 Resp 14 12/25/24 10:44 BP 116/72 12/25/24 10:44 Pulse Ox 96 12/25/24 10:44 Oxygen Delivery Method Room Air 12/25/24 10:44 BMI result Body Mass Index 31.3 Tobacco/Smoking Status: Tobacco use Status Tobacco use date assessed 12/25/24 12/25/24 10:43 Patient Tobacco Use Status Never used Tobacco 12/25/24 10:43 e-Cigarette/Vaping Use Never Used 12/25/24 10:43 PHQ-9: PHQ-9 Score PHQ-9: Total score 6 12/25/24 11:29 Depression Screening Interpretation: Positive Thrive Assessment: Date of Thrive Assessment Date Thrive assessed 08/15/24 12/25/24 10:43 Currently or been in a relationship where the following occur: No concerns reported Const General: well developed; No acute distress Nutritional Appearance: well nourished Orientation/consciousness: patient oriented x3 HENMT Head: Yes normocephalic and Yes atraumatic Eyes General: appearance normal, both eyes and all related structures Pupils: Equal, round and reactive pupils present EOM: EOMs intact bilaterally Resp Effort & Inspection: normal respiratory effort Neuro General: patient oriented x3 and gait normal Cranial nerves: Yes Equal, round and reactive pupils present Psych Affect: normal affect Coding Level of Care Code Est Pt Level 5 (26881) Diagnoses Essential hypertension I10 Sweating profusely R61 Screening for colon cancer Z12.11 Carpal tunnel syndrome of right wrist G56.01 Additional Codes PAYTON-7 Assessment Billing - PAYTON-7 Assessment Tool: PAYTON-7 Assessment 82880 ([id number]) PHQ-9 - 99486 - PHQ-9 Billing: Yes ([id number]) Assessment & Plan Assessment & Plan (1) Essential hypertension: Code(s): I10 - Essential (primary) hypertension Category: Medical Plan: Blood pressure is controlled. Goal is less than 140/90 Continue current medication (2) Sweating profusely: Code(s): R61 - Generalized hyperhidrosis Category: Medical Plan: Patient has complaints of sweating. Was concern regarding his heart EKG is normal Will check labs including CMP, TSH, metanephrines testosterone, insulin and C-peptide. (3) Screening for colon cancer: Code(s): Z12.11 - Encounter for screening for malignant neoplasm of colon Category: Medical Plan: Patient had a colonoscopy in 2021 and recommended follow-up in 2026 Up-to-date (4) Carpal tunnel syndrome of right wrist: Code(s): G56.01 - Carpal tunnel syndrome, right upper limb Category: Medical Plan: Patient has concerns for bilateral hand numbness and tingling with neck pain and cervical radiculopathy as well. Likely has some carpal tunnel syndrome superimposed. Unclear if this is the primary cause of his discomfort He would like a 2nd opinion gastroenterology has already made a referral to neuro spine. I have ordered cervical spine x-rays. Orders: Orders AMB EKG-In Office Today R61 - Generalized hyperhidrosis Metanephrines, Plasma Today R61 - Generalized hyperhidrosis TSH reflex Free T4 Today R61 - Generalized hyperhidrosis, Z00.00 - Encounter for general adult medical examination without abnormal findings Comprehensive [place]. Panel Fast Today R61 - Generalized hyperhidrosis, Z00.00 - Encounter for general adult medical examination without abnormal findings C Peptide Today R61 - Generalized hyperhidrosis Insulin Today R61 - Generalized hyperhidrosis Testosterone, Free/Total Today R61 - Generalized hyperhidrosis XR cervical spine 2V Today R61 - Generalized hyperhidrosis Complete Blood Count Auto Diff Today R61 - Generalized hyperhidrosis, Z00.00 - Encounter for general adult medical examination without abnormal findings Comprehensive [place]. Panel Today R61 - Generalized hyperhidrosis
[2024-12-25 10:44] VITALS: BP 116/72; PULSE 69; RESP 14; TEMP 36.8; O2SAT 96; BMI 31.3
== END 2024-12-25 12:13 | disposition home or self-care (01) ==
LOC: HO.HMCFM 10:32
PROVIDERS: PCP Family Medicine; Visit Provider Family Medicine
DX: I10 Essential (primary) hypertension (principal); R61 Generalized hyperhidrosis; Z12.11 Encounter for screening for malignant neoplasm of colon; G56.01 Carpal tunnel syndrome, right upper limb

== ENCOUNTER → 2024-12-25 10:28 | Outpatient (BNVA) | payer OTHER, SELFPAY | PROVIDERS: PCP Family Medicine; Visit Provider Family Medicine | DX: I10 Essential (primary) hypertension (principal); R61 Generalized hyperhidrosis; G56.01 Carpal tunnel syndrome, right upper limb; Z79.899 Other long term (current) drug therapy; Z13.31 Encounter for screening for depression | CPT/HCPCS: 96127; 99212 ==

== ENCOUNTER 2024-12-27 11:34 | Outpatient (REF) | payer OTHER, SELFPAY ==
--- NOTE | ~2024-12-27 | XR_ITS ---
EXAMINATION: XR CERVICAL SPINE CLINICAL INFORMATION: R61 - Generalized hyperhidrosis COMPARISON: None available. TECHNIQUE: AP and lateral views FINDINGS: Craniocervical junction is intact. Anterior marginal osteophyte formation and endplate sclerosis subchondral cyst formation and decreased intervertebral disc height at C3-4 and to a lesser extent C4-5 and C5-6 levels. Grade 1 retrolisthesis C3-4 and C4-5 levels. Degenerative changes in the periodontal C1 region. No lytic or blastic lesions. Upper airways patent. XR/XR cervical spine 2V IMPRESSION: Multilevel cervical spondylosis C3 C6 resulting in grade 1 retrolisthesis C3-4 and C4-5 levels. Electronically signed by: Edward Rahman MD 12/27/2024 11:59 AM EDT
== END 2024-12-27 11:35 | disposition home or self-care (01) ==
LOC: HO.HMGCX 11:34
PROVIDERS: PCP Family Medicine; Visit Provider Family Medicine
DX: R61 Generalized hyperhidrosis (principal)
CPT/HCPCS: 72040

== ENCOUNTER → 2024-12-27 11:38 | Outpatient (BNV) | payer OTHER, SELFPAY | PROVIDERS: PCP Family Medicine; Visit Provider Radiology Diagnostic Radiology | DX: R61 Generalized hyperhidrosis (principal); M47.812 Spondylosis without myelopathy or radiculopathy, cervical region | CPT/HCPCS: 72040 ==

== ENCOUNTER 2024-12-28 08:11 | Outpatient (REF) | payer OTHER, SELFPAY ==
[2024-12-28 08:29] LABS: MANUAL DIFF FLAG NO
[2024-12-28 08:37] LABS: Hematocrit 43.3 % (42.0-52.0); Hemoglobin 15.3 g/dl (14.0-18.0); Imm Gran Abs Auto 0.03 X10*3/uL (0.00-0.03); Imm Gran Pct Auto 0.5 % (0.0-0.4); Lymphocytes Absolute Auto 1.3 X10*3/uL (1.2-4.9); Mean Corpuscular HGB Conc 35.3 g/dl (31.0-36.0); Mean Corpuscular Hemoglobin 30.7 pg (27.0-33.0); Mean Corpuscular Volume 86.8 fL (80.0-98.0); NRBC Abs Auto 0.000 X10*3/uL (0.0-0.012); NRBC Pct Auto 0.0 /100WBC (0.0-0.2); Platelet Count 177 X10*3/uL (160-400); Red Blood Count 4.99 X10*6/uL (4.60-5.80); White Blood Count 5.5 X10*3/uL (4.8-10.8)
[2024-12-28 08:57] LABS: Alanine Aminotransferase 37 U/L (0-40); Albumin Level 4.4 g/dL (3.5-5.0); Alkaline Phosphatase 70 U/L (39-117); Anion Gap 11 (12-20); Aspartate Amino Transferase 25 U/L (5-37); Blood Urea Nitrogen 17 mg/dL (9-16); Calcium 9.0 mg/dL (8.4-10.2); Carbon Dioxide 27 mmol/L (22-29); Chloride 107 mmol/L (96-108); Estimated Glomerular Filt Rate > 60; Potassium 4.4 mmol/L (3.3-5.1); Sodium 141 mmol/L (135-145); Total Protein 6.7 g/dL (6.5-8.0)
[2025-01-02 18:43] LABS: Testosterone, Free 56.5 pg/mL (35.0-155.0)
[2025-01-03 10:03] LABS: Metanephrine, Free 42 pg/mL (<=57); Normetanephrines, Free 115 pg/mL (<=148); Total Metanephrine, Free 157 pg/mL (<=205)
== END 2024-12-28 08:12 | disposition home or self-care (01) ==
LOC: HO.LAB 08:11
PROVIDERS: PCP Family Medicine; Visit Provider Family Medicine
DX: Z00.00 Encounter for general adult medical examination without abnormal findings (principal); R61 Generalized hyperhidrosis
CPT/HCPCS: 36415; 80053; 83525; 83835; 84402; 84403; 84443; 84681; 85025

== ENCOUNTER 2025-01-31 11:47 | Outpatient (AMB) | payer OTHER, SELFPAY ==
[2025-01-31 11:51] VITALS: BP 138/84; PULSE 74; RESP 18; TEMP 36.7; O2SAT 97; BMI 31.1
--- NOTE | 2025-01-31 11:51 | MHC.PC.OV ---
Vital Signs 01/31/25 11:51 Height 5 ft 10 in Weight 216 lb 8 oz BMI 31.1 BP 138/84 Blood Pressure Location Rt brachial Position Sitting Respiration 18 Pulse 74 Pulse Source Pulse Oximeter Temp 98.0 F Temp Source Temporal Artery Scan Pulse Oximetry (%) 97 Oxygen Delivery Method Room Air Intake Visit Reasons: f/u chronic conditions Allergies celecoxib (Celebrex) Adverse Reaction (Unknown, Verified 01/31/25 11:51) eyes swell Medication List - Last Reconciled 01/31/25 by Tanmay Biswas MD bisacodyl (Dulcolax (bisacodyl)) 20 mg (4 x 5 mg) PO ONCE 1 day cetirizine 10 mg PO DAILY cholecalciferol (vitamin D3) 50 mcg PO DAILY 30 days clotrimazole-betamethasone 1-0.05 % 1 appl topical BID 2 weeks cyclobenzaprine 10 mg PO TID PRN hydrochlorothiazide 12.5 mg PO DAILY 90 days ibuprofen 800 mg PO Q8H PRN meloxicam 15 mg PO DAILY 30 days methylcellulose (laxative) (Citrucel) 500 mg PO DAILY mupirocin 2% 1 appl topical BID 30 days oxycodone ER (OxyContin) 0 mg PO polyethylene glycol 3350 (Miralax) 17 grams PO DAILY 14 days polyethylene glycol 3350 (Miralax) 238 grams PO ONCE sennosides (Natural Senna Laxative) 17.2 mg (2 x 8.6 mg) PO BEDTIME Tobacco use date assessed: 01/31/25 Dental Screening Dental Screen Date: 01/31/25 Did you have a dental visit in the last 12 months?: No Did you have a dental problem in the last 6 months where you did not have access to dental care?: No Was dental information given to patient?: Patient has dentist HPI f/u chronic conditions HPI Details 64 y/o male presents to f/u chronic conditions. Had been having issues with neck/hand pain and radicular symptoms. Had ordered x-ray of his C-spine. Cervical spine x-ray 12/27/24 shows: Multilevel cervical spondylosis C3 C6 resulting in grade 1 retrolisthesis C3-4 and C4-5 levels. Ongoing complaints of excessive sweating. Notes a bit of chest pain/shortness of breath associated with it. He notes he has had an EKG in the past which was fine. Elevated fasting glucose from labs drawn in December. HPI Comments History of Present Illness Details Documentation assistance for Tanmay Biswas MD, was provided by Noam Parekh, Mechanical Engineering Technologist on 01/31/2025 at 12:42 PM EST. I, Dr. Biswas, have read, observed, and verified documentation. ? PFSH Surgical History (Updated 01/31/25 @ 11:56 by Hannah Ball CMA) History of colon resection History of back surgery Family History (Updated 01/31/25 @ 11:57 by Hannah Ball CMA) Father No problems noted. Mother No problems noted. 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 1. Little interest or pleasure in doing things: several days 2. Feeling down, depressed, or hopeless: several days 3. Trouble falling or staying asleep, or sleeping too much: several days 4. Feeling tired or having little energy: several days 5. Poor appetite or overeating: several days 6. Feeling bad about yourself - or that you are a failure or have let yourself or your family down: not at all 7. Trouble concentrating on things, such as reading the newspaper or watching television: several days 8. Moving or speaking so slowly that other people could have noticed. Or the opposite - being so fidgety or restless that you have been moving around a lot more than usual: not at all 9. Thoughts that you would be better off or of hurting yourself in some way: not at all Total score: 6 Depression Screening Interpretation: Positive Depression Screening Done: Yes Source: Developed by Drs. Alexi Moreno, Amarilys White, Jesus Marcial and colleagues, with an educational padmini from [employer]. Thrive Questionnaire Date Thrive assessed: 08/15/24 I am a: Patient What is your living situation today?: I have a steady place to live Within the past 12 months, did the food you bought not last and you didn't have the money to get more?: Sometimes True Within the past 12 months, did you worry whether your food would run out before you got money to buy more?: Sometimes True Do you have trouble paying for medicines?: Yes Do you have trouble getting transportation to medical appointments?: Yes Do you have trouble paying your heating and electricity bill?: Yes Do you have trouble taking care of your child, family member or friend?: No Do you have trouble with day-to-day activities such as bathing, preparing meals, shopping, managing finances, etc.?: Yes Are you currently unemployed and looking for a job?: No Are you interested in more education?: Yes Currently or been in a relationship where the following occur: No concerns reported THRIVE Score: 4 AUDIT C Alcohol Use Questionnaire (AUDIT-C) 1. How often do you have a drink containing alcohol?: 2-4 times a month 2. How many drinks containing alcohol do you have on a typical day when you are drinking?: 1 or 2 3. How often do you have six or more drinks on one occasion?: Never Total Score: 2 PAYTON-7 AMB Questionnaire PAYTON-7 Date PAYTON - 7 assessed: 12/25/24 Feeling nervous, anxious, or on edge: 0 = Not at all Not being able to stop or control worryin = Not at all Worrying too much about different things: 0 = Not at all Trouble relaxin = Not at all Being so restless that it is hard to sit still: 0 = Not at all Becoming easily annoyed or irritable: 0 = Not at all Feeling afraid as if something awful might happen: 0 = Not at all Total PAYTON-7 score (0-4 normal; 5-9 mild; 10-14 moderate; 15-21 severe): 0 Source: Developed by Drs. Alexi Moreno, Amarilys White, Jesus Marcial and colleagues, with an educational padmini from [employer]. PAYTON-7 Assessment Billing PAYTON-7 Assessment Tool: PAYTON-7 Assessment 87990 Review of Systems Const Denies chills, Denies fatigue, Denies fever(s), Denies headache(s) and Denies weakness ENT Denies dizziness and Denies headache(s) Card Denies dyspnea Resp Denies cough, Denies dyspnea, Denies wheezing and Denies other (shortness of breath) Musc Denies numbness and Denies tingling Neuro Denies dizziness, Denies headache(s), Denies numbness, Denies tingling and Denies weakness Psych Denies anxiety and Denies depression Endo Denies fatigue Aller/Immun Denies wheezing Physical exam (Primary Care) Vital Signs: Last Vital Signs Temp 98.0 F 01/31/25 11:51 Pulse 74 01/31/25 11:51 Resp 18 01/31/25 11:51 BP 138/84 01/31/25 11:51 Pulse Ox 97 01/31/25 11:51 Oxygen Delivery Method Room Air 01/31/25 11:51 BMI result Body Mass Index 31.1 Tobacco/Smoking Status: Tobacco use Status Tobacco use date assessed 01/31/25 01/31/25 11:58 Patient Tobacco Use Status Never used Tobacco 01/31/25 11:58 e-Cigarette/Vaping Use Never Used 01/31/25 11:58 PHQ-9: PHQ-9 Score PHQ-9: Total score 6 01/31/25 12:38 Depression Screening Interpretation: Positive Thrive Assessment: Date of Thrive Assessment Date Thrive assessed 08/15/24 01/31/25 11:58 Currently or been in a relationship where the following occur: No concerns reported Const General: well developed; No acute distress Nutritional Appearance: well nourished Orientation/consciousness: patient oriented x3 HENMT Head: Yes normocephalic and Yes atraumatic Eyes General: appearance normal, both eyes and all related structures Pupils: Equal, round and reactive pupils present EOM: EOMs intact bilaterally Resp Effort & Inspection: normal respiratory effort Neuro General: patient oriented x3 and gait normal Cranial nerves: Yes Equal, round and reactive pupils present Psych Affect: normal affect Coding Level of Care Code Est Pt Level 4 (92424) Diagnoses Cervical radiculopathy M54.12 Cervical spondylosis M47.812 Sweating profusely R61 Elevated fasting glucose R73.01 Additional Codes PAYTON-7 Assessment Billing - PAYTON-7 Assessment Tool: PAYTON-7 Assessment 08937 ([id number]) Assessment & Plan Assessment & Plan (1) Cervical radiculopathy: Code(s): M54.12 - Radiculopathy, cervical region Category: Medical (2) Cervical spondylosis: Code(s): M47.812 - Spondylosis without myelopathy or radiculopathy, cervical region Category: Medical (3) Sweating profusely: Code(s): R61 - Generalized hyperhidrosis Category: Medical (4) Elevated fasting glucose: Code(s): R73.01 - Impaired fasting glucose Category: Medical Plan Cervical radiculopathy with tingling in bilateral hands. X-ray of cervical spine shows retrolisthesis C3-4, C4-5. Will check MRI Has ongoing profuse sweating from his face. Lab work unremarkable except elevated fasting blood sugar in increased C peptide Will check an A1c and repeat fasting blood sugar. Will refer to endocrinology Orders: Orders Hemoglobin A1c Today R73.01 - Impaired fasting glucose MR cervical spine wo con Today M43.10 - Spondylolisthesis, site unspecified, M54.12 - Radiculopathy, cervical region, R20.0 - Anesthesia of skin, R20.2 - Paresthesia of skin Comprehensive [place]. Panel Fast Today R73.01 - Impaired fasting glucose, Z00.00 - Encounter for general adult medical examination without abnormal findings Referrals Endocrinology Referral R61 - Generalized hyperhidrosis
--- OUTSIDE RECORDS SUMMARY | 2025-01-31 12:53 | XMS_ITS | Clinical Summary ---
Author Organization [facility] Address [address] [id number] Phone Care Team Providers Care Professor Of Forestry Name Role Phone Unavailable Primary Care Provider Unavailabl e Social History Tobacco Use Types Packs/Day Years Used Date Smoking Tobacco: Never Assessed Education Answer Date Recorded Are you interested in more education? Not on feroz e 10/15/2022 Are you concerned about learning? Not on file 10/15/2022 No 10/15/2022 No 10/15/2022 Digital Access Answer Date Recorded No 11/13/2022 No 11/13/2022 No 11/13/2022 Reliable internet access at home? Not on file 11/13/2022 Device with a working camera? Not on file Sex and Gender Information Value Date Recorded Sex Assigned at Not on file Legal Sex Male 9:46 PM EDT Gender Identity Not on file Sexual Orientation Not on file Plan of Treatment Health Maintenance Due Date Last Done Comments LIPID PANEL 1961 DEPRESSION SCREENING 1973 SMOKING Hx and SMOKELESS TOBACCO SCREENING 1974 HEPATITIS C SCREENING 1979 HIV ONE-TIME SCREENING (18-6 5 YEARS) 1979 COLOGUARD 2006 COLONOSCOPY 2006 COLORECTAL CANCER SCREENING 2006 FIT TEST 2006 FOBT 2006 SIGMOIDOSCOPY 2006 VIRTUAL COLONOSCOPY 2006 PNEUMOCOCCAL VACCINES (50+ years) (1 of 1 - PCV) 2011 ZOSTER VACCINES (1 of 2) 2011 COVID-19 VACCINE (2 - 2023-2 5 season) 2024 10/16/2020 Adult Td,Tdap Booster 09/03/2029 09/04/2019 , 06/04/2002 RSV VACCINE (1 - 1-dose 75+ series) 2036 HEPATITIS A VACCINES Aged Out No long er eligible based on patient's age to complete this topic HIB VACCINES Aged Out No longer eligi ble based on patient's age to complete this topic MENINGOCOCCAL VACCINES (ACWY) Aged Out No longer eligible based on patient's age to complete this topic MENINGOCOCCAL VACCINES (B) Aged Out N o longer eligible based on patient's age to complete this topic Medical Devices Not on file Additional Source Comments The information contained in this document represents components of the legal health record. It is not the complete legal health record.[facility]
== END 2025-01-31 12:48 | disposition home or self-care (01) ==
LOC: HO.HMCFM 11:48
PROVIDERS: PCP Family Medicine; Visit Provider Family Medicine
DX: M54.12 Radiculopathy, cervical region (principal); M47.812 Spondylosis without myelopathy or radiculopathy, cervical region; R61 Generalized hyperhidrosis; R73.01 Impaired fasting glucose

== ENCOUNTER → 2025-01-31 11:47 | Outpatient (BNVA) | payer OTHER, SELFPAY | PROVIDERS: PCP Family Medicine; Visit Provider Family Medicine | DX: M47.22 Other spondylosis with radiculopathy, cervical region (principal); R61 Generalized hyperhidrosis; R73.01 Impaired fasting glucose | CPT/HCPCS: 96127; 99212 ==

== ENCOUNTER 2025-02-05 09:08 | Outpatient (REF) | payer OTHER, SELFPAY ==
--- OUTSIDE RECORDS SUMMARY | 2025-02-05 10:04 | XMS_ITS | Clinical Summary ---
Author Organization [facility] Address [address] [phone] Phone Care Team Providers Care Commercial Loan Analyst Name Role Phone Unavailable Primary Care Provider [...] It is not the complete legal health record.[facility]
[2025-02-05 10:25] LABS: Hemoglobin A1C 145.8128 umol/L; Total Hemoglobin (HGBA1C) 3836.7165 umol/L
[2025-02-05 10:54] LABS: Alanine Aminotransferase 36 U/L (0-40); Albumin Level 4.2 g/dL (3.5-5.0); Alkaline Phosphatase 74 U/L (39-117); Anion Gap 12 (12-20); Aspartate Amino Transferase 25 U/L (5-37); Blood Urea Nitrogen 13 mg/dL (9-16); Calcium 8.9 mg/dL (8.4-10.2); Carbon Dioxide 28 mmol/L (22-29); Chloride 103 mmol/L (96-108); Estimated Glomerular Filt Rate > 60; Potassium 4.1 mmol/L (3.3-5.1); Sodium 139 mmol/L (135-145); Total Protein 6.7 g/dL (6.5-8.0)
== END 2025-02-05 09:09 | disposition home or self-care (01) ==
LOC: HO.LAB 09:08
PROVIDERS: PCP Family Medicine; Visit Provider Family Medicine
DX: Z00.00 Encounter for general adult medical examination without abnormal findings (principal); R73.01 Impaired fasting glucose
CPT/HCPCS: 36415; 80053; 83036

== ENCOUNTER 2025-02-12 19:54 | Outpatient (REF) | payer OTHER, SELFPAY ==
--- NOTE | ~2025-02-12 | MR_ITS ---
CLINICAL HISTORY: M54.12 - Radiculopathy, cervical region MR cervical spine without gadolinium Comparison: CR/SR - XR CERVICAL SPINE 2-3 VIEWS - 12/27/24 11:49 EDT Findings: Normal vertebral body alignment. Moderate multilevel spondylosis with degenerative disc desiccation, disc height loss, posterior disc osteophyte complex, uncovertebral joint hypertrophy and facet arthropathy. At C2-C3, no significant spinal canal narrowing. Moderate left neural foraminal narrowing. At C3-C4, moderate spinal canal narrowing and ventral cord remodeling. Severe bilateral neural foraminal narrowing. At C4-C5, mild spinal canal narrowing and ventral cord remodeling. Moderate bilateral neural foraminal narrowing. At C5-C6, mild spinal canal narrowing and moderate bilateral neural foraminal narrowing. At C6-C7, no significant spinal canal narrowing. Moderate right neural foraminal narrowing. At C7-T1, no significant spinal canal or neural foraminal narrowing. No acute fractures or pathologic bone lesions. Visualized intracranial contents are unremarkable. Soft tissues of the neck are normal. Cervical cord normal size and signal. IMPRESSION: No acute disease of the cervical spine. No abnormal cord signal or evidence of cord compression. Moderate multilevel spondylosis of the cervical spine as detailed in the findings. This document has been electronically signed by: Alfredo Jj MD on 02/13/2025 19:28:24
--- OUTSIDE RECORDS SUMMARY | 2025-02-12 20:02 | XMS_ITS | Clinical Summary ---
Author Organization [facility] Address [address] [phone] Phone Care Team Providers Care Food Preparer Name Role Phone Unavailable Primary Care Provider [...] It is not the complete legal health record.[facility]
== END 2025-02-12 19:55 | disposition home or self-care (01) ==
LOC: HO.MRI 19:54
PROVIDERS: PCP Family Medicine; Visit Provider Family Medicine
DX: M54.12 Radiculopathy, cervical region (principal); M43.10 Spondylolisthesis, site unspecified; R20.0 Anesthesia of skin; R20.2 Paresthesia of skin
CPT/HCPCS: 72141

== ENCOUNTER → 2025-02-12 19:54 | Outpatient (BNV) | payer OTHER, SELFPAY | PROVIDERS: PCP Family Medicine; Visit Provider Student in an Organized Health Care Education/Training Program | DX: M47.812 Spondylosis without myelopathy or radiculopathy, cervical region (principal); M54.12 Radiculopathy, cervical region | CPT/HCPCS: 72141 ==

== ENCOUNTER 2025-03-13 10:25 | Outpatient (AMB) | payer OTHER, SELFPAY ==
--- NOTE | 2025-03-13 10:28 | A.OFFPC_ITS ---
Vital Signs 03/13/25 10:34 Height 5 ft 10 in Weight 215 lb 2 oz BMI 30.9 BP 116/82 Blood Pressure Location Rt brachial Position Sitting Respiration 16 Pulse 81 Pulse Source Pulse Oximeter Temp 98 F Temp Source Temporal Artery Scan Pulse Oximetry (%) 96 Oxygen Delivery Method Room Air Intake Visit Reasons: f/u cervical radiculopathy/MRI Intake Note: Carl presents in the office today for cervical radiculopathy/MRI. Allergies celecoxib (Celebrex) Adverse Reaction (Unknown, Verified 03/13/25 10:32) eyes swell Tobacco use date assessed: 03/13/25 Dental Screening Dental Screen Date: 03/13/25 Did you have a dental visit in the last 12 months?: No Did you have a dental problem in the last 6 months where you did not have access to dental care?: No Was dental information given to patient?: Patient has dentist HPI f/u cervical radiculopathy/MRI HPI Details 64 y/o male presents to f/u cervical rad iculopathy/MRI. Cervical spine MRI 02/13/25. No acute disease of the cervical spine. No abnormal cord signal or evidence of cord compression. Moderate multilevel spondylosis with degenerative disc desiccation, disc height loss, posterior disc osteophyte complex, uncovertebral joint hypertrophy and facet arthropathy. 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 He does note some tremors. A1c 02/05/25 5.6%. Reports ongoing foot pain. HPI Comments History of Present Illness Details Documentation assistance for Tanmay Biswas MD, was provided by Noam Parekh, World Travel Counselor on 03/13/2025 at 10:59 AM YAMILE. I, Dr. Biswas, have read, observed, and verified documentation. [facility] Surgical History (Updated 01/31/25 @ 11:56 by Hannah Ball CMA) History of colon resection History of back surgery Family History Father No problems noted. Mother No problems noted. 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 Current occupational exposures/hazards: No Cognitive needs: No Hearing needs: No Vision needs: Yes Questionnaire Thrive Questionnaire Date Thrive assessed: 08/15/24 I am a: Patient What is your living situation today?: I have a steady place to live Within the past 12 months, did the food you bought not last and you didn't have the money to get more?: Sometimes True Within the past 12 months, did you worry whether your food would run out before you got money to buy more?: Sometimes True Do you have trouble paying for medicines?: Yes Do you have trouble getting transportation to medical appointments?: Yes Do you have trouble paying your heating and electricity bill?: Yes Do you have trouble taking care of your child, family member or friend?: No Do you have trouble with day-to-day activities such as bathing, preparing meals, shopping, managing finances, etc.?: Yes Are you currently unemployed and looking for a job?: No Are you interested in more education?: Yes Currently or been in a relationship where the following occur: No concerns reported THRIVE Score: 4 PAYTON-7 AMB Questionnaire PAYTON-7 Date PAYTON - 7 assessed: 12/25/24 Source: Developed by Drs. Alexi Moreno, Amarilys White, Jesus Marcial and colleagues, with an educational padmini from [employer]. Review of Systems Const Denies chills, Denies fatigue, Denies fever(s), Denies headache(s) and Denies weakness ENT Denies dizziness and Denies headache(s) Card Denies dyspnea Resp Denies cough, Denies dyspnea, Denies wheezing and Denies other (shortness of breath) Musc Details: L foot pain Denies numbness and Denies tingling Neuro Denies dizziness, Denies headache(s), Denies numbness, Denies tingling and Denies weakness Psych Denies anxiety and Denies depression Endo Denies fatigue Aller/Immun Denies wheezing Physical exam (Primary Care) Vital Signs: Last Vital Signs Temp 98 F 03/13/25 10:34 Pulse 81 03/13/25 10:34 Resp 16 03/13/25 10:34 BP 116/82 03/13/25 10:34 Pulse Ox 96 03/13/25 10:34 Oxygen Delivery Method Room Air 03/13/25 10:34 BMI result Body Mass Index 30.9 Tobacco/Smoking Status: Tobacco use Status Tobacco use date assessed 03/13/25 03/13/25 10:36 Patient Tobacco Use Status Never used Tobacco 03/13/25 10:33 e-Cigarette/Vaping Use Never Used 03/13/25 10:33 Thrive Assessment: Date of Thrive Assessment Date Thrive assessed 08/15/24 03/13/25 10:30 Currently or been in a relationship where the following occur: No concerns reported Const General: well developed; No acute distress Nutritional Appearance: well nourished Orientation/consciousness: patient oriented x3 HENMT Head: Yes normocephalic and Yes atraumatic Eyes General: appearance normal, both eyes and all related structures Pupils: Equal, round and reactive pupils present EOM: EOMs intact bilaterally Resp Effort & Inspection: normal respiratory effort Neuro General: patient oriented x3 and gait normal Cranial nerves: Yes Equal, round and reactive pupils present Psych Affect: normal affect Coding Level of Care Code Est Pt Level 4 (86484) Diagnoses Cervical radiculopathy M54.12 Cervical spondylosis M47.812 Elevated fasting glucose R73.01 Sweating profusely R61 Foot pain M79.673 Bilateral carpal tunnel syndrome G56.03 Assessment & Plan Assessment & Plan (1) Cervical radiculopathy: Code(s): M54.12 - Radiculopathy, cervical region Category: Medical Plan: Pain at neck, bilateral trapezius and levator scapulae muscles, right worse than left MRI does show C3-4 foraminal stenoses Patient does not want surgery or injection therapy intervention yet. He would like to try physical therapy - ordered. He also has bilateral hand tingling/numbness with minimal or no weakness at this point. He likely has overlap of carpal tunnel syndrome Will get occupation therapy. (2) Cervical spondylosis: Code(s): M47.812 - Spondylosis without myelopathy or radiculopathy, cervical region Category: Medical (3) Elevated fasting glucose: Code(s): R73.01 - Impaired fasting glucose Category: Medical Plan: Elevated fasting blood sugars and A1c 5.6% which is top normal range Encouraged diet low in sugars and starches (4) Sweating profusely: Code(s): R61 - Generalized hyperhidrosis Category: Medical Plan: No obvious metabolic cause for his sweating is found Encouraged weight loss Will continue monitor (5) Foot pain: Code(s): M79.673 - Pain in unspecified foot Category: Medical Plan: Left foot pain Pain primarily at anterior ankle and anterior foot Also has some numbness and discomfort at great toe Check x-ray Will follow-up with patient next visit (6) Bilateral carpal tunnel syndrome: Code(s): G56.03 - Carpal tunnel syndrome, bilateral upper limbs Category: Medical Plan: As above Plan f/u 1 month Orders: Orders XR foot LT min 3V Today M79.673 - Pain in unspecified foot OT Evaluation and Treatment Today G56.03 - Carpal tunnel syndrome, bilateral upper limbs PT Evaluation and Treatment Today M25.511 - Pain in right shoulder, M25.512 - Pain in left shoulder, M54.12 - Radiculopathy, cervical region, M54.2 - Cervicalgia
[2025-03-13 10:34] VITALS: BP 116/82; PULSE 81; RESP 16; TEMP 36.6; O2SAT 96; BMI 30.9
--- OUTSIDE RECORDS SUMMARY | 2025-03-13 12:56 | XMS_ITS | Clinical Summary ---
Author Organization [facility] Address [address] [phone] Phone Care Team Providers Care Vending Machine Filler Name Role Phone Unavailable Primary Care Provider [...] HEPATITIS C SCREENING 1979 HIV ONE-TIME SCREENING (18-65 YEARS) 1979 COLOGUARD 2006 COLONOSCOPY 2006 COLORECTAL CANCER SCREENING 2006 FIT TEST 2006 FOBT 2006 SIGMOIDOSCOPY 2006 VIRTUAL COLONOSCOPY 2006 PNEUMOCOCCAL VACCINES (50+ years) (1 of 1 - PCV) 2011 ZOSTER VACCINES (1 of 2) 2011 INFLUENZA VACCINE (#1) 2025 , 05/30/2019, 03/27/2018, Additional history exists COVID-19 VACCINE (2 - season) 2025 10/16/2020 Adult Td,Tdap Booster 09/03/2029 09/04/2019, 002 RSV VACCINE (1 - 1-dose 75+ series) [...] It is not the complete legal health record.[facility]
== END 2025-03-13 11:14 | disposition home or self-care (01) ==
LOC: HO.HMCFM 10:25
PROVIDERS: PCP Family Medicine; Visit Provider Family Medicine
DX: M54.12 Radiculopathy, cervical region (principal); M47.812 Spondylosis without myelopathy or radiculopathy, cervical region; R73.01 Impaired fasting glucose; R61 Generalized hyperhidrosis; M79.673 Pain in unspecified foot; G56.03 Carpal tunnel syndrome, bilateral upper limbs

== ENCOUNTER → 2025-03-13 10:25 | Outpatient (BNVA) | payer OTHER, SELFPAY | PROVIDERS: PCP Family Medicine; Visit Provider Family Medicine | DX: M47.22 Other spondylosis with radiculopathy, cervical region (principal); R73.01 Impaired fasting glucose; R61 Generalized hyperhidrosis; G56.03 Carpal tunnel syndrome, bilateral upper limbs; M79.672 Pain in left foot | CPT/HCPCS: 99212 ==

== ENCOUNTER 2025-04-04 07:34 | Day surgery (SDC) | payer OTHER, SELFPAY ==
--- OUTSIDE RECORDS SUMMARY | 2025-03-15 13:58 | XMS_ITS | Clinical Summary ---
Author Organization [facility] Address [address] [phone] Phone Care Team Providers Care Shift Supervisor Rn Name Role Phone Unavailable Primary Care Provider [...] It is not the complete legal health record.[facility]
[2025-04-02 11:40] VITALS: BMI 32.3
--- NOTE | 2025-04-02 12:53 | P.CONAN_ITS ---
Documented by User: Crystal Junior NP 04/02/25 12:56 HPI - Anesthesia Eval Consult details Narrative: 64yo M for Colonoscopy PMFSH Active Problems Active Problems: All Active Problems Generalized hyperhidrosis (Acute) Shoulder pain, bilateral (Acute) Cervicalgia (Acute) Bilateral carpal tunnel syndrome (Acute) Foot pain (Acute) Retrolisthesis (Acute) Elevated fasting glucose (Acute) Cervical spondylosis (Acute) Sweating profusely (Acute) Right knee pain (Acute) Numbness and tingling in left hand (Acute) Cervical radiculopathy (Acute) Carpal tunnel syndrome of right wrist (Acute) Low vitamin D level (Acute) Knee pain (Acute) Mass of right hand (Acute) Numbness and tingling in right hand (Acute) History of diverticulitis (Acute) Chronic abdominal pain (Acute) Right hand weakness (Acute) Ganglion cyst (Acute) Chronic diarrhea (Acute) Chest pain on respiration (Acute) Coccyx pain (Acute) Change in stool habits (Acute) Poor historian (Acute) Left lower quadrant abdominal pain (Acute) Dysuria (Acute) Diverticulitis (Acute) Boils (Acute) Suprapubic pain (Acute) Osteoarthritis of right hip (Acute) Right hip pain (Acute) Hyperkalemia (Acute) Achilles tendonitis (Acute) Muscle spasm of left calf (Acute) Pruritus (Acute) Blistering rash (Acute) Back pain (Acute) History of COVID-19 (Acute) Hypercholesterolemia (Acute) Screening for colon cancer (Acute) Screening for prostate cancer (Acute) Adult general medical exam (Acute) Pulmonary nodule (Acute) Balanitis (Acute) Laboratory examination ordered as part of a routine general medical examination (Acute) Constipation (Acute) Yeast infection of the skin (Acute) Essential hypertension (Acute) Past Medical History Medical History Cervical spondylosis Essential hypertension Family History Family History Father No problems noted. Mother No problems noted. 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 Current occupational exposures/hazards: No Cognitive needs: No Hearing needs: No Vision needs: Yes Meds Allergies Allergy/AdvReac Type Severity Reaction Status Date / Time celecoxib (Celebrex) AdvReac Unknown eyes swell Verified 03/13/25 10:32 Home Medications ?Medication ?Instructions ?Recorded ?Confirmed ?Last Taken ?Type oxycodone 15 mg tablet,crush 0 mg PO 02/24/22 01/31/25 Unknown History resistant,extended release 12 hr (OxyContin) Exam Height,Weight and Vital Signs: Height 5 ft 10 in Weight 102.058 kg Pertinent Lab Results Pertinent Lab Results: Laboratory Tests 12/28/24 02/05/25 08:28 09:20 WBC 5.5 Hgb 15.3 Hct 43.3 Plt Count 177 Sodium 139 Potassium 4.1 Chloride 103 Carbon Dioxide 28 BUN 13 Creatinine 0.89 Narrative Narrative: EKG 01/2025 NSR Assessment and Plan Assessment Anesthesia Assessment: Chart Reviewed Documented by User: Litzy Foley MD 04/04/25 08:17 [facility] Past Medical History Medical History Cervical spondylosis Essential hypertension Family History Family History Father No problems noted. Mother No problems noted. Family history of problems with anesthesia: No Surgical History Surgical History History of colon resection History of back surgery History of Problems with Anesthesia: No Social History Social History Housing: House Alcohol intake: current Alcohol intake frequency: a few times a month Patient Tobacco Use Status: Never used Tobacco e-Cigarette/Vaping Use: Never Used Second Hand Smoke Exposure: No Use of substances other than those prescribed or required for medical reasons: No Advance Directives: No Advance Directives Information Provided: Yes service: No Current occupational status: disabled 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 Current occupational exposures/hazards: No Cognitive needs: No Hearing needs: No Vision needs: Yes Meds Allergies Allergy/AdvReac Type Severity Reaction Status Date / Time celecoxib (Celebrex) AdvReac Unknown eyes swell Verified 03/13/25 10:32 Home Medications ?Medication ?Instructions ?Recorded ?Confirmed ?Last Taken ?Type oxycodone 15 mg tablet,crush 0 mg PO 02/24/22 01/31/25 Unknown History resistant,extended release 12 hr (OxyContin) Exam Airway Mallampati Class: II TM Dist: <=3cm Neck ROM: Limited Heart: rrr Lungs: cta Assessment and Plan Assessment Anesthesia Assessment: Anesthesia Plan Discussed Final Anesthetic Review Family History of Problems with Anesthesia: No History of Problems with Anesthesia: No NPO: Yes ASA Class: II Final Preanesthetic Review: No Changes in Pt Med Stat, Meds/Allgs Chart Reviewed, Consent Obtained/Reviewed and Anes Risks/Benef Reviewed Patient Risk: Intermediate Procedure Risk: Low Anesthetic Plan Anesthetic Plan: MAC: and Agree w/ Assess. and Plan Disposition: Standard PACU
[2025-04-04 07:52] VITALS: BMI 31.1
[2025-04-04 08:03] VITALS: BP 139/90; PULSE 73; RESP 16; TEMP 35.7; O2SAT 96
[2025-04-04] MEDS: Lactated Ringers 1,000 ML 100 ML IVCONT (08:03)
--- NOTE | 2025-04-04 08:47 | P.HPSUR_ITS ---
Pre-Procedural Eval Section A - 24 Hr Update-Section A only Date of Service: 04/04/25 Section B - Complete if H&P > 30 days Chief Complaint: Noninfective gastroenteritis and colitis,pain, Relevant Family History (Specify if Yes): No Relevant Social History: None Present Medications: see Short Stay Collaborative assessment Medical History: Significant History (Cervical spondylosis Essential hypertension) History of Previous Operations: Relevant previous surgery/procedure and date(s) ( History of colon resection History of back surgery) Allergies: Allergies Allergy/AdvReac Type Severity Reaction Status Date / Time celecoxib (Celebrex) AdvReac Unknown eyes swell Verified 03/13/25 10:32 Review of Systems Sugical H&P ROS: Negative: Constitution, Cardiovascular, Respiratory, Neurological, Psychiatric, Hem-Onc, Allergic/Immunologic, Gastrointestinal, Gen itourinary, Musculoskeletal, Integumentary, Endocrine and Eyes/Ears/Nose/Throat Exam Surgical H&P Exam: Normal: HEENT, Normal: Heart, Normal: Lungs, Normal: Extremities, Normal: Abdomen, Normal: Skin and Normal: Neurological Plan Diagnosis/Plan: Unchanged I have reviewed the history and physical and performed a pertinent physical examination on my patient. No changes have occurred unless specified. Time Spent With Patient Time: Total time managing care of this patient today ____ minutes.
--- NOTE | 2025-04-04 09:13 | P.OPN-COLO_ITS ---
Colonoscopy Operative Note Operative Note Date of Service: 04/04/25 Narrative: Operative Information Procedure Description: Colonoscopy Indication: screening Anesthesia: MAC COLONOSCOPY Instrument: Olympus variable stiffness adult scope 190L Colonoscopy Monitoring: Vital signs and clinical assessment, continuous EKG monitoring, Pulse oximetry, Carbon Dioxide monitoring and blood pressure monitoring were done throughout the procedure. Colon withdrawal time was 10 minutes. Procedure: The patient was placed in the left lateral decubitis position and pre-procedure medications were administered. After a digital rectal examination of the ano-rectum, the video colonoscope was inserted into the rectum and advanced through the colon to the cecum/TI. The colonoscope was slowly withdrawn in a retrograde panoramic fashion and the colon mucosa was carefully examined including a retroflexed view of the rectum. Findings and interventions are described below. Procedure Difficulty: easy Findings: Terminal Ileum-normal Cecum:normal right sided retroflexion- normal Ascending Colon: normal Transverse Colon -normal Descending Colon: mild divertciulosis Sigmoid Colon: colo-colonic anastomosis noted , scattered diverticula Rectum: Retroflexion with small internal hemorrhoids seen, grade I Anorectum - normal Intervention: none Colon preparation: [place] Bowel Preparation Scale Right colon; 2 Transverse colon: 2 Left colon; 2 (0 = Unprepared colon segment with mucosa not seen due to solid stool that cannot be cleared. 1 = Portion of mucosa of the colon segment seen, but other areas of the colon segment not well seen due to staining, residual stool and/or opaque liquid. 2 = Minor amount of residual staining, small fragments of stool and/or opaque liquid, but mucosa of colon segment seen well. 3 = Entire mucosa of colon segment seen well with no residual staining, small fragments of stool or opaque liquid) Impression and Post Procedure Diagnosis: diverticulosis internal hemorrhoids Plan: High fiber diet leaflet Avoid straining at stool, epsom salts and sitz bath, anusol supps or cream Repeat Colonoscopy in 10 years or earlier if clinically indicated He has been having chronic abdominal pain on the left side with very tender trigger point, suggestive of myofascial pain, will refer pain management Above findings were reviewed with the patient and relevant handouts were provided if indicated.
[2025-04-04 09:16] VITALS: BP 98/64; PULSE 74; RESP 12; TEMP 36.3; O2SAT 97
[2025-04-04 09:31] VITALS: BP 122/80; PULSE 70; RESP 12; TEMP 36.5; O2SAT 95
== END 2025-04-04 10:11 | disposition home or self-care (01) ==
PROVIDERS: PCP Family Medicine; Visit Provider Internal Medicine Gastroenterology
PROC: 0DJD8ZZ Inspection of Lower Intestinal Tract, Via Natural or Artificial Opening Endoscopic (ICD-10-PCS; CPT 45378; principal; 2025-04-04 09:10)
DX: R10.9 Unspecified abdominal pain (principal); G89.29 Other chronic pain; R10.32 Left lower quadrant pain; K57.30 Diverticulosis of large intestine without perforation or abscess without bleeding; K64.0 First degree hemorrhoids; Z87.19 Personal history of other diseases of the digestive system; Z90.49 Acquired absence of other specified parts of digestive tract; Z98.0 Intestinal bypass and anastomosis status; K59.03 Drug induced constipation; K52.9 Noninfective gastroenteritis and colitis, unspecified; I10 Essential (primary) hypertension; M54.12 Radiculopathy, cervical region; R20.0 Anesthesia of skin; R20.2 Paresthesia of skin; Z79.899 Other long term (current) drug therapy; Z88.8 Allergy status to other drugs, medicaments and biological substances
CPT/HCPCS: 45378; J2003; J2704

== ENCOUNTER → 2025-04-04 07:34 | Outpatient (BNV) | payer OTHER, SELFPAY | PROVIDERS: PCP Family Medicine; Visit Provider Internal Medicine Gastroenterology | DX: Z12.11 Encounter for screening for malignant neoplasm of colon (principal); K57.90 Diverticulosis of intestine, part unspecified, without perforation or abscess without bleeding; K64.0 First degree hemorrhoids | CPT/HCPCS: 45378 ==

== ENCOUNTER 2025-04-30 09:42 | Outpatient (AMB) | payer OTHER, SELFPAY ==
--- NOTE | 2025-04-30 09:44 | A.OFFPC_ITS ---
Vital Signs 04/30/25 09:50 Height 5 ft 10 in Weight 219 lb BMI 31.4 BP 122/70 Blood Pressure Location Rt brachial Position Sitting Respiration 12 Pulse 69 Pulse Source Pulse Oximeter Temp 98.2 F Temp Source Oral Pulse Oximetry (%) 97 Oxygen Delivery Method Room Air Intake Visit Reasons: f/u chronic conditions Intake Note: patient is scheduled to follow up with pcp for chronic conditions. [employer]icon[employer] Equipment Technician Required: No Allergies celecoxib (Celebrex) Adverse Reaction (Unknown, Verified 04/30/25 09:49) eyes swell Medication List - Last Reconciled 04/30/25 by Tanmay Biswas MD bisacodyl (Dulcolax (bisacodyl)) 20 mg (4 x 5 mg) PO ONCE 1 day cetirizine 10 mg PO DAILY cholecalciferol (vitamin D3) 50 mcg PO DAILY 30 days clotrimazole-betamethasone 1-0.05 % 1 appl topical BID 2 weeks cyclobenzaprine 10 mg PO TID PRN hydrochlorothiazide 12.5 mg PO DAILY 90 days ibuprofen 800 mg PO Q8H PRN meloxicam 15 mg PO DAILY 30 days methylcellulose (laxative) (Citrucel) 500 mg PO DAILY mupirocin 2% 1 appl topical BID 30 days oxycodone ER (OxyContin) 0 mg PO polyethylene glycol 3350 (Miralax) 17 grams PO DAILY 14 days polyethylene glycol 3350 (Miralax) 238 grams PO ONCE sennosides (Natural Senna Laxative) 17.2 mg (2 x 8.6 mg) PO BEDTIME Tobacco use date assessed: 03/13/25 Dental Screening Dental Screen Date: 03/13/25 HPI f/u chronic conditions HPI Details 64 y/o male presents to f/u chronic cond itions. Reviewing x-ray of L foot. Also following up on how he is doing with PT for neck, shoulder radiculopathy and also OT for bilateral carpal tunnel syndrome. He reports ongoing hand pain but notes slight improvement. No x-ray for his L foot but pt notes pain has much improved. Blood pressure today 122/70, 69p. He is on hydrochlorothiazide 12.5mg daily. [facility] Medical History Cervical spondylosis Essential hypertension Surgical History History of colon resection History of back surgery Family History Father No problems noted. Mother No problems noted. 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 Current occupational exposures/hazards: No Cognitive needs: No Hearing needs: No Vision needs: Yes Questionnaire Thrive Questionnaire Date Thrive assessed: 08/15/24 I am a: Patient What is your living situation today?: I have a steady place to live Within the past 12 months, did the food you bought not last and you didn't have the money to get more?: Sometimes True Within the past 12 months, did you worry whether your food would run out before you got money to buy more?: Sometimes True Do you have trouble paying for medicines?: Yes Do you have trouble getting transportation to medical appointments?: Yes Do you have trouble paying your heating and electricity bill?: Yes Do you have trouble taking care of your child, family member or friend?: No Do you have trouble with day-to-day activities such as bathing, preparing meals, shopping, managing finances, etc.?: Yes Are you currently unemployed and looking for a job?: No Are you interested in more education?: Yes Currently or been in a relationship where the following occur: No concerns reported THRIVE Score: 4 PAYTON-7 AMB Questionnaire PAYTON-7 Date PAYTON - 7 assessed: 12/25/24 Source: Developed by Drs. Alexi Moreno, Amarilys White, Jesus Marcial and colleagues, with an educational padmini from [employer]. Review of Systems Const Denies chills, Denies fatigue, Denies fever(s), Denies headache(s) and Denies weakness ENT Denies dizziness and Denies headache(s) Card Denies dyspnea Resp Denies cough, Denies dyspnea, Denies wheezing and Denies other (shortness of breath) Musc Denies numbness and Denies tingling Neuro Denies dizziness, Denies headache(s), Denies numbness, Denies tingling and Denies weakness Psych Denies anxiety and Denies depression Endo Denies fatigue Aller/Immun Denies wheezing Physical exam (Primary Care) Vital Signs: Last Vital Signs Temp 98.2 F 04/30/25 09:50 Pulse 69 04/30/25 09:50 Resp 12 04/30/25 09:50 BP 122/70 04/30/25 09:50 Pulse Ox 97 04/30/25 09:50 Oxygen Delivery Method Room Air 04/30/25 09:50 BMI result Body Mass Index 31.4 Tobacco/Smoking Status: Tobacco use Status Tobacco use date assessed 03/13/25 04/30/25 09:45 Patient Tobacco Use Status Never used Tobacco 04/30/25 09:45 e-Cigarette/Vaping Use Never Used 04/30/25 09:45 Thrive Assessment: Date of Thrive Assessment Date Thrive assessed 08/15/24 04/30/25 09:45 Currently or been in a relationship where the following occur: No concerns reported Const General: well developed; No acute distress Nutritional Appearance: well nourished Orientation/consciousness: patient oriented x3 HENMT Head: Yes normocephalic and Yes atraumatic Eyes General: appearance normal, both eyes and all related structures Pupils: Equal, round and reactive pupils present EOM: EOMs intact bilaterally Resp Effort & Inspection: normal respiratory effort Neuro General: patient oriented x3 and gait normal Cranial nerves: Yes Equal, round and reactive pupils present Psych Affect: normal affect Coding Level of Care Code Est Pt Level 4 (10822) Diagnoses Foot pain M79.673 Shoulder pain, bilateral M25.511; M25.512 Cervicalgia M54.2 Bilateral carpal tunnel syndrome G56.03 Essential hypertension I10 Assessment & Plan Assessment & Plan (1) Foot pain: Code(s): M79.673 - Pain in unspecified foot Category: Medical Plan: This has resolved (2) Shoulder pain, bilateral: Code(s): M25.511 - Pain in right shoulder; M25.512 - Pain in left shoulder Category: Medical Plan: Had ordered physical therapy but patient has not been contacted yet. Ask the office to help him get scheduled (3) Cervicalgia: Code(s): M54.2 - Cervicalgia Category: Medical Plan: As above, PT is ordered (4) Bilateral carpal tunnel syndrome: Code(s): G56.03 - Carpal tunnel syndrome, bilateral upper limbs Category: Medical Plan: He is using wrist braces at night Had ordered occupational therapy and he has not been contacted-ask office to help get him scheduled (5) Essential hypertension: Code(s): I10 - Essential (primary) hypertension Category: Medical Plan: Blood pressure is controlled. Goal is less than 140/90 Continue hydrochlorothiazide Orders: Orders Prostate Specific Antigen Scr Today Z12.5 - Encounter for screening for malignant neoplasm of prostate Comprehensive [place]. Panel Fast Today Z00.00 - Encounter for general adult medical examination without abnormal findings Complete Blood Count Auto Diff Today Z00.00 - Encounter for general adult medical examination without abnormal findings UA CC w/rflx Micro + Cult Today Z00.00 - Encounter for general adult medical examination without abnormal findings TSH reflex Free T4 Today Z00.00 - Encounter for general adult medical examination without abnormal findings Microalbumin, Random (w Creat) Today I10 - Essential (primary) hypertension Lipid Panel Today Z00.00 - Encounter for general adult medical examination without abnormal findings
[2025-04-30 09:50] VITALS: BP 122/70; PULSE 69; RESP 12; TEMP 36.8; O2SAT 97; BMI 31.4
--- OUTSIDE RECORDS SUMMARY | 2025-04-30 10:53 | XMS_ITS | Clinical Summary ---
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
== END 2025-04-30 10:32 | disposition home or self-care (01) ==
LOC: HO.HMCFM 09:42
PROVIDERS: PCP Family Medicine; Visit Provider Family Medicine
DX: M79.673 Pain in unspecified foot (principal); M25.511 Pain in right shoulder; M25.512 Pain in left shoulder; M54.2 Cervicalgia; G56.03 Carpal tunnel syndrome, bilateral upper limbs; I10 Essential (primary) hypertension

== ENCOUNTER → 2025-04-30 09:42 | Outpatient (BNVA) | payer OTHER, SELFPAY | PROVIDERS: PCP Family Medicine; Visit Provider Family Medicine | DX: I10 Essential (primary) hypertension (principal); M25.511 Pain in right shoulder; M25.512 Pain in left shoulder; M79.672 Pain in left foot; G56.03 Carpal tunnel syndrome, bilateral upper limbs; M54.2 Cervicalgia | CPT/HCPCS: 99212 ==